=== PATIENT | female | born 1960 | race Caucasian/White ===

== ENCOUNTER → 2020-10-18 17:23 | Outpatient (CLI) | payer OTHER, SELFPAY ==
--- NOTE | ~2020-10-18 | XR_ITS ---
EXAMINATION: XR hand LT min 3V DATE: 10/18/2020 17:56 INDICATION: Left hand third digit swelling. TECHNIQUE: 3 views of left hand were obtained. COMPARISON: None. FINDINGS: Bone alignment is normal. No fracture. There is mild osteoarthritis of fourth and fifth pro ximal interphalangeal joints and fifth distal interphalangeal joint. IMPRESSION: 1. Polyarticular osteoarthritis. Reviewed, dictated and finalized at location A.
== END ==
PROVIDERS: PCP Family Medicine; Visit Provider Family Medicine
DX: M19.042 Primary osteoarthritis, left hand (principal)
CPT/HCPCS: 73130

== ENCOUNTER 2020-11-08 14:27 | Outpatient (RCR) | payer OTHER, SELFPAY ==
--- NOTE | 2020-11-08 15:42 | OTOPEVAL ---
OCCUPATIONAL THERAPY EVALUATION & DISCHARGE NOTE 11/08/20 Misti is a 60 year-old, right handed female who presents to outpatient hand therapy with dx of left middle finger stenosing tenosynovitis. She had a cortisone injection ~ 10 days ago and this alleviated all symptoms. She no longer has pain, edema, or any restricted ROM and has returned to normal functional use. She does have concerns about the condition returning for which she was educated on use of ice/heat, rest, immobilization, and ROM. She was also instructed in workspace ergonomics and adaptive techniques to reduce tendon strain in her hands during ADLs, driving, and riding her bike. She verbalizes good understanding of all materials and is in agreement with discharge. Thank you for referring Misti Gordillo to [facility].? Please review, sign, date and return this D/C Note SHEMAR. I agree with and certify that the following plan of care is medically necessary. Referring Physician Date Referring Provider: Maik Lyn MD *OT Outpatient Evaluation Start: 11/08/20 09:22 Evaluation Information Problem Diagnosis Left middle finger stenosing tenosynovitis Subjective Information At the end of May - COVID Query Text:As Reported By Patient/ shot, joints inflamed, Family increased pain body-wide. Then end of June - COVID shot, pain was more localized to left hand, specifically to left middle finger. Noticed pain and edema. Would use heat/ice/ Tylenol which would help some, but symptoms would always return. She received a cortisone injection on 10/29/20 and her symptoms have completely alleviated. Pain Assessment Timing of Pain Assessment Timing of Pain Assessment Assessment Self Report Self Report Pain Level 0 Pain Score Pain Score 0: Self Report Upper Extremity Range of Motion Finger Range of Motion Left Reason Not Measured WNL/Left,WNL/Right Finger Range of Motion Comments Slight (<1cm) gap with hook fist in index and middle fingers. Full fist, opposition , and lumbricals are intact. Splint/Brace/Cast Assessment Splint and Bracing Assessment Left Finger, Middle Fabrication Clinician Made Splint/Brace/Cast Comments Figure 8 PIP immobilization splint Reason For Splint/Brace/Cast Optimal Positioning Schedule Comments Patient to wear at night and during the day if trigger finger returns. Site Condition Intact Tolerance Tolerates Well Splinting/Bracing/Casting Comments
== END 2021-01-24 10:04 | disposition home or self-care (01) ==
LOC: ANHOT 14:27
PROVIDERS: PCP Family Medicine; Visit Provider Plastic Surgery
DX: M65.332 Trigger finger, left middle finger (principal)
CPT/HCPCS: 97110; 97165; L3933

== ENCOUNTER → 2022-08-29 13:24 | Outpatient (CLI) | payer OTHER, SELFPAY ==
--- NOTE | ~2022-08-29 | MM_ITS ---
EXAMINATION: MM screening [facility] BI w [facility] HISTORY: Screening mammogram TECHNIQUE: Craniocaudal and mediolateral oblique 3-D tomosynthesis images were obtained and synthetic 2-D images were generated. CAD analysis was submitted and interpreted. COMPARISON: 03/11/2019, 06/19/2016, 05/19/2013 BREAST PARENCHYMAL COMPOSITION: There are scattered areas of fibroglandular density. FINDINGS: No suspicious mass, calcification, or architectural distortion are identified in either vilma ast to suggest malignancy. There has been no suspicious interval change. IMPRESSION: 1. No mammographic evidence of malignancy. 2. Recommend routine screening mammography in one year. BI-RADS Category 1: Negative Reviewed, dictated and finalized at location A.
--- NOTE | ~2022-08-29 | DEXA_ITS ---
Bone Density Report Name: BRAYDON LEONARD Age: 61 Sex: Female Ethnicity: White Date of : 1960 Indication: osteopenia; parental hip fracture; prior fracture; postmenopausal Referring Provider: SABINO MARK Study: Bone densitometry was performed. Exam Date: August 29, 2022 Accession number: [id number] Bone Density: Region BMD T-score Z-score Classification AP Spine (L1-L4) 0.943 -0.9 0.5 Normal Femoral Neck (Left) 0.647 -1.8 -0.5 Osteopenia Total Hip (Left) 0.798 -1.2 -0.2 Osteopenia Femoral Neck (Right) 0.604 -2.2 -0.9 Osteopenia Total Hip (Right) 0.703 -2.0 -1.0 Osteopenia Total Hip Mean 0.751 -1.6 -0.6 Osteopenia World Health Organization criteria for BMD impression classify patients as: Normal (T-score at or above -1.0), Osteopenia (T-score between -1.0 and -2.5), or Osteoporosis (T-score at or below -2.5). 10-year Fracture Risk(1): Major Osteoporotic Fracture 31% Hip Fracture 2.6% Reported Risk Factors: [place] (), Neck BMD=0.604, BMI=27.0, previous fracture, parental fracture (1) FRAX(R) Version 3.08. Fracture probability calculated for an untreated patient. Fracture probability may be lower if the patient has received treatment. Previous Exams: Region Exam Age BMD T-score BMD Change BMD Change Date g/cm2 vs Baseline vs Previous AP Spine(L1-L4) 08/29/2022 61 0.943 -0.9 0.012 -0.006 03/11/2019 58 0.949 -0.9 0.018 0.011 06/27/2016 55 0.938 -1.0 0.007 -0.022 02/22/2013 52 0.960 -0.8 0.029* 0.029* 01/23/2011 50 0.931 -1.1 Total Hip(Left) 08/29/2022 61 0.798 -1.2 -0.066* -0.052* 03/11/2019 58 0.850 -0.8 -0.014 -0.028* 06/27/2016 55 0.878 -0.5 0.013 0.002 02/22/2013 52 0.876 -0.5 0.011 0.011 01/23/2011 50 0.865 -0.6 Total Hip(Right) 08/29/2022 61 0.703 -2.0 -0.089* -0.043* 03/11/2019 58 0.747 -1.6 -0.046* -0.002 06/27/2016 55 0.749 -1.6 -0.044* -0.068* 02/22/2013 52 0.817 -1.0 0.024 0.024 01/23/2011 50 0.793 -1.2 *Denotes significance at 95% confidence level, LSC for AP Spine = 0.022 g/cm2, LSC for Total Hip = 0.027 g/cm2 Clinical Information Provided by Patient: Has had a low trauma fracture Parent has had a hip fracture Has used the following medications: Vitamin D, Calcium Patient maximum h
== END ==
PROVIDERS: PCP Family Medicine; Visit Provider Family Medicine
DX: Z12.31 Encounter for screening mammogram for malignant neoplasm of breast (principal); Z78.0 Asymptomatic menopausal state; M85.852 Other specified disorders of bone density and structure, left thigh; M85.851 Other specified disorders of bone density and structure, right thigh
CPT/HCPCS: 77063; 77067; 77080

== ENCOUNTER 2024-06-06 13:43 | Outpatient (CLI) | payer OTHER, SELFPAY ==
--- OUTSIDE RECORDS SUMMARY | 2024-06-06 13:46 | XMS_ITS | Clinical Summary ---
Author Organization [facility] Address [address] [place] [phone] Phone Care Team Providers Care Recruiter Manager Name Role Phone Norris Stacy MD Primary Care Provider [phone] Allergies Active Allergy Reactions Criticality Noted Date Comments Azithromycin Other (See Comments) 08/10/2020 tachycardia Penicillins Rash Low 08/10/2020 Sulfa (Sulfonamide Antibiotics) Rash Low 08/10/2020 Medications No known medications Social History Tobacco Use Types Packs/Day Years Used Date Smoking Tobacco: Never Alcohol Use Standard Drinks/Week Comments Yes 0 (1 standard drink = 0.6 oz pur e alcohol) Comments Unknown Sex and Gender Information Value Date Recorded Sex Assigned at Not on file Legal Sex Female 2:28 PM CDT Gender Identity Not on file Sexual Orientation Not on file Last Filed Vital Signs Vital Sign Reading Time Taken Comments Blood Pressure 128/73 08/10/2020 5:09 PM CDT Pulse 66 08/10/2020 2:38 PM CDT Temperature 36.8 C (98.2 F) 08/10/2020 5:09 PM CDT Respiratory Rate 18 08/10/2020 5:09 PM CDT Oxygen Saturation 100% 08/10/2020 5:09 PM CDT Inhaled Oxygen Concentration - - Weight 75.8 kg (167 lb) 08/10/2020 2:38 PM CDT Height 167.6 cm (5' 6 ) 08/10/2020 2:38 PM CDT Body Mass Index 26.95 08/10/2020 2:38 PM CDT Plan of Treatment Health Maintenance Due Date Last Done Comments DTAP/TDAP/TD VACCINES (1 - Tdap) 1981 CERVICAL CANCER SCREENING 1992 BREAST CANCER SCREENING 2002 COLORECTAL SCREENING 09/25/2007 Colorectal Cancer Screening 09/25/2007 FIT-DNA Q 3 years 09/25/2007 FIT/FOBT Q 1 year 09/25/2007 Flex Sig/CT Colonography Q 5 years 09/25/2007 ZOSTER VACCINE (1 of 2) 2012 INFLUENZA VACCINE (#1) 2023 RSV VACCINE (60+ or ) (1 - 1-dose 75+ series) 2037 PNEUMOCOCCAL VACCINE 0-64 YEARS Aged Out No longer eligible based on patient's age to complete this topic Insurance [employer] CHOICE POS II Care Teams Recruiter Manager Relationship Specialty Start Date End Date Norris Stacy MD [address] [place] [id number] PCP - General Family Practice 08/10/20
--- OUTSIDE RECORDS SUMMARY | 2024-06-06 13:47 | XMS_ITS | Data Portability ---
Author Organization [place] Angela HOFFMAN Address [address] [facility] [address] 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 recent past hx of abnormals reviewed ; normal SUSIE workup in 2017. last pap normal... menopausal, doing well with black cohash and evening primrose [employer] son just got in [place]. a big damn deal... 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 Lab pap, IG + reflex HR HPV - Reflex if ASCUS 2016 017 [facility], [address], [place], [address], 7 16:26:16 pap, LB + reflex HPV mRNA E6/E7 - Broom only 2017 018 Related Content Database (RCDb) - [facility], [address] [place], [address], 8 07:09:35 pap, LB + reflex HPV mRNA E6/E7 - Broom only 2018 019 Related Content Database (RCDb) [facility], [address] [place], [address], 9 15:35:11 fecal occult blood, stool 2018 019 In-Office Order, Internal Use Only DO Not Attach Compendium DO Not Attach Compendium, Do Not Delete/merge, [id number] 9 17:11:54 cytology report, thin prep, smear or scraping, cervical or vaginal 2023 024 [facility], [address] [place] [address], [address], 4 16:19:32 Referral None recorded. Procedures None recorded. Surgeries None recorded. Imaging MAMMO, screening, digital, bilateral 2017 018 [email or web address] Not available 8 11:25:03 MAMMO, screening, digital, bilateral 2018 019 Not available 9 17:11:55 MAMMO, screening, digital, bilateral 2023 024 [facility], [address], [place], [address], 5 11:42:58 Medication Orders None recorded. Patient TargetsNo targets recorded. Patient Instructions Encounter Date Encounter Id Patient Instructions Last Modified By Organization Details Last Modified Time 03/18/2018 [id number] learning about breast cancer screening Not available 03/18/2018 11:17:23 04/08/2019 [id number] learning about breast cancer screening Not available 04/08/2019 17:11:55 04/17/2024 [id number] A healthy lifestyle: care instructions Not available 04/17/2024 15:36:43 learning about breast cancer screening Not available 04/17/2024 15:36:43 Reason for Referral None Reported. Results Created Date Observation Date Name Description Value Unit Range Abnormal Flag Note LastModifiedBy Organization Detail LastModifiedTime 12/26/19 17 12/28/2016 pap, LB + refle x HPV mRNA E6/E7 clinical information: normal Routi ne exam Not Available [address], [address], 12/28/2016 16:26:16 12/26/19 17 12/28/2016 pap, LB + refle x HPV mRNA E6/E7 LMP: 7 normal Not Available [address], [address], 12/28/2016 16:26:16 12/26/19 17 12/28/2016 pap, LB + refle x HPV mRNA E6/E7 prev. Pap: normal INFOR MATIO N NOT PROVI DED Not Available [address], [address], 12/28/2016 16:26:16 12/26/19 17 12/28/2016 pap, LB + refle x HPV mRNA E6/E7 prev. BX: normal INFOR MATIO N NOT PROVI DED Not Available [address], [address], 12/28/2016 16:26:16 12/26/19 17 12/28/2016 pap, LB + refle x HPV mRNA E6/E7 source: normal Cervi x, Endoc ervix Not Available [address], [address], 12/28/2016 16:26:16 12/26/19 17 12/28/2016 pap, LB + refle x HPV mRNA E6/E7 statement of adequacy: normal Satis facto ry for evalu ation . Endoc ervic al/tr ansfo rmati on zone compo nent prese nt. Not Available [address] [address] [place], [address], 12/28/2016 16:26:16 12/26/19 17 12/28/2016 pap, LB + refle x HPV mRNA E6/E7 interpretati on/result: normal Negat florence for intra epith elial lesio n or malig santos . Not Available [address], [place], [address], 12/28/2016 16:26:16 12/26/19 17 12/28/2016 pap, LB + refle x HPV mRNA E6/E7 comment: normal This Pap test has been evalu ated with compu ter morgan evan techn ology . Not Available [address] [address] [place], [address], 12/28/2016 16:26:16 12/26/19 17 12/28/2016 pap, LB + refle x HPV mRNA E6/E7 cytotechnolo gist: normal PCM, CT( CP) CT scree chery locat ion: [address] [address] [place] [address] Not Available [address] [address] [place], [address], 12/28/2016 16:26:16 03/18/20 18 03/25/2018 pap, LB + refle x HPV mRNA E6/E7 clinical information: normal Routi ne exam Hx of abnor mal Pap/B x withi n 3 years Not Available [address] [address] [place], [address], 03/25/2018 07:09:34 03/18/20 18 03/25/2018 pap, LB + refle x HPV mRNA E6/E7 LMP: [id number] 18 normal Not Available [address] [address] [place], [address], 03/25/2018 07:09:34 03/18/20 18 03/25/2018 pap, LB + refle x HPV mRNA E6/E7 prev. Pap: normal INFOR MATIO N NOT PROVI DED Not Available [address] [address] [place], [address], 03/25/2018 07:09:34 03/18/20 18 03/25/2018 pap, LB + refle x HPV mRNA E6/E7 prev. BX: normal INFOR MATIO N NOT PROVI DED Not Available [address] [address] [place], [address], 03/25/2018 07:09:34 03/18/20 18 03/25/2018 pap, LB + refle x HPV mRNA E6/E7 source: normal Cervi x, Endoc ervix Not Available [address] [address] [place], [address], 03/25/2018 07:09:34 03/18/20 18 03/25/2018 pap, LB + refle x HPV mRNA E6/E7 statement of adequacy: normal Satis facto ry for evalu ation . Endoc ervic al/tr ansfo rmati on zone compo nent absen t. Not Available [address] [address] [address] , [place], [address], 03/25/2018 07:09:34 03/18/20 18 03/25/2018 pap, LB + refle x HPV mRNA E6/E7 interpretati on/result: normal Negat florence for intra epith elial lesio n or al graham . Not Available [address] [address] [place], [address], 03/25/2018 07:09:34 03/18/20 18 03/25/2018 pap, LB + refle x HPV mRNA E6/E7 comment: normal This Pap test has been evalu ated with compu ter morgan evan techn ology . Not Available [address] [address] [place], [address], 03/25/2018 07:09:34 03/18/20 18 03/25/2018 pap, LB + refle x HPV mRNA E6/E7 cytotechnolo gist: normal TMK, CT( CP) CT scree chery locat ion: [address] [address] [place] [address] Not Available [address] [address] [place], [address], 03/25/2018 07:09:34 03/18/20 18 03/25/2018 pap, LB + refle x HPV mRNA E6/E7 review cytotechnolo gist: normal LMT, CT( CP) CT scree chery locat ion: [address] [address] [place] [address] Not Available [facility] [address] [address] [place], [address], 03/25/2018 07:09:34 03/18/20 18 03/25/2018 pap, LB + refle x HPV mRNA E6/E7 comment EXPLA NATOR Y NOTE: The Pap is a scree chery test for cervi niru cance r. It is not a diagn ostic test and is subje ct to false negat florence and false posit florence resul ts. It is most relia ble when a satis facto ry sampl e, regul jose m obtai basim, is submi tted with relev ant clini niru findi ngs and histo ry, and when the Pap resul t is evalu ated along with histo delfin and curre nt clini niru infor matio n. Not Available [address] [address] [place], [address], 03/25/2018 07:09:34 04/08/20 19 04/10/2019 pap, LB + refle x HPV mRNA E6/E7 clinical information: normal Routi ne exam Not Available [facility] [address] [address] [place], [address], 04/10/2019 15:35:10 12/10/04/10/2019 pap, LB + refle x HPV mRNA E6/E7 LMP: 8 normal Not Available [address] [address] [place], [address], 04/10/2019 15:35:10 04/08/20 19 04/10/2019 pap, LB + refle x HPV mRNA E6/E7 prev. Pap: normal INFOR MATIO N NOT PROVI DED Not Available [address] [address] [place], [address], 04/10/2019 15:35:10 04/08/20 19 04/10/2019 pap, LB + refle x HPV mRNA E6/E7 prev. BX: normal INFOR MATIO N NOT PROVI DED Not Available [address] [address] [place], [address], 04/10/2019 15:35:10 04/08/20 19 04/10/2019 pap, LB + refle x HPV mRNA E6/E7 source: normal Cervi x, Endoc ervix Not Available [address] [place], [address], 04/10/2019 15:35:10 04/08/20 19 04/10/2019 pap, LB + refle x HPV mRNA E6/E7 statement of adequacy: normal Satis facto ry for evalu ation . Endoc ervic al/tr ansfo rmati on zone compo nent absen t. Not Available [address] [address] [place], [address], 04/10/2019 15:35:10 04/08/20 19 04/10/2019 pap, LB + refle x HPV mRNA E6/E7 interpretati on/result: normal Negat florence for intra epith elial lesio n or malig santos . Not Available [address] [address] [place], [address], 04/10/2019 15:35:10 04/08/20 19 04/10/2019 pap, LB + refle x HPV mRNA E6/E7 cytotechnolo gist: normal AMW, CT( CP) CT scree chery locat ion: [address] [address] [place] [address] Not Available [facility] [address] [address] [place], [address], 04/10/2019 15:35:10 04/08/20 19 04/10/2019 pap, LB + refle x HPV mRNA E6/E7 review cytotechnolo gist: normal MLO, CT( CP) CT scree chery locat ion: [facility] [address] [address] [place] [address] Not Available [facility] [address] [address] [place], [address], 04/10/2019 15:35:10 04/08/20 19 04/10/2019 pap, LB + refle x HPV mRNA E6/E7 comment EXPLA NATOR Y NOTE: The Pap is a scree chery test for cervi niru cance r. It is not a diagn ostic test and is subje ct to false negat florence and false posit florence resul ts. It is most relia ble when a satis facto ry sampl e, regul jose m obtai basim, is submi tted with relev ant clini niru findi ngs and histo ry, and when the Pap resul t is evalu ated along with histo delfin and curre nt clini niru infor matio n. Not Available [facility] [address] [address] [address], [place], [address], 04/10/2019 15:35:10 04/08/20 19 04/08/2019 fecal occul t blood , stool Occult Blood negati ve Not Available In-Office Order Internal Use Only DO Not Attach Compendium DO Not Attach Compendium, Do Not Delete/merge, [id number] 04/08/2019 16:41:49 04/17/20 24 04/25/2024 IGP, RFX APTIM A HPV ASCU diagnosis: COMMEN T NEGAT [place] FOR INTRA EPITH ELIAL STEPHANIE Hackett OR AL GRAHAM . Not Available [facility] ([facility]) [address], [place], [address], 04/25/2024 16:19:32 04/17/20 24 04/25/2024 IGP, RFX APTIM A HPV ASCU specimen adequacy: OMEGA Lopez Satis facto ry for evalu ation . Not Available [facility] ([facility]) [address], [place], [address], 04/25/2024 16:19:32 04/17/20 24 04/25/2024 IGP, RFX APTIM A HPV ASCU clinician provided ICD10: OMEGA Lopez Z01.4 19 Not Available [facility] ([facility]) [address] [facility], [place], [address], 04/25/2024 16:19:32 04/17/20 24 04/25/2024 IGP, RFX APTIM A HPV ASCU performed by: Raymond Wang (ASCP ) Not Available [facility] ([facility]) [address] [facility], [place], [address], 04/25/2024 16:19:32 04/17/20 24 04/25/2024 IGP, RFX APTIM A HPV ASCU . . Not Available [facility] ([facility]) [address] [place], [address], 04/25/2024 16:19:32 04/17/20 24 04/25/2024 IGP, RFX APTIM A HPV ASCU note: OMEGA Lopez The Pap smear is a scree chery test desig basim to aid in the detec tion of dileep ligna nt and malig nant condi tions of the uteri ne cervi x. It is not a diagn ostic proce dure and shoul d not be used as the sole means of detec ting cervi niru cance r. Both false -posi tive and false -nega tive repor ts do occur . Not Available [facility] ([facility]) [address], [place], [address], 04/25/2024 16:19:32 04/17/20 24 04/25/2024 IGP, RFX APTIM A HPV ASCU test methodology: COMMEN T This liqui d based ThinP rep(R ) pap test was scree basim with the use of an image guide conner olivarez. Not Available [facility] ([facility]) [address], [place], [address], 04/25/2024 16:19:32 04/17/20 24 04/25/2024 IGP, RFX APTIM A HPV ASCU . COMMEN T The HPV DNA refle x crite giovana were not met with this speci men resul t there fore, no HPV testi ng was perfo rmed. Not Available [facility] ([facility]) [address], [place], [address], 04/25/2024 16:19:32 Result Notes None recorded. Problems No Known Problems Procedures Surgical History Date Name Laterality Status Provider Name and Address Organization Details Recorded Time 4 Date of Last Pap Smear completed MARIA EUGENIA Greene [facility] 04/25/2024 16:28:53 7 Dilation and Curettage completed Chayo Cheek MA [facility] 08/07/2016 16:51:26 7 Colposcopy completed Enrique Bhardwaj MD Attn: Accounting[address] [place], [address], [facility] 06/21/2016 12:37:39 Back Surgery completed Mary Cancino RN [facility] 06/12/2016 17:39:41 Tubal Ligation completed Mary Cancino RN [facility] 06/12/2016 17:40:00 Imaging Results None recorded. Procedure Notes None recorded. Medical Equipment None Reported. Allergies Allergen ID Allergen Name Allergen Category Reaction Reaction Severity Criticality Documentation Date Start Date Code Code System Note Provider Name and Address Organization Details Recorded Time 08053 azithromy malini medicatio n Not available Not available Not available 06/12/2016 57496 RxNorm Not Available Not Available Not Available 14892 Product containin g penicilli n and antibioti c (product) medicatio n Not available Not available Not available 06/12/2016 43987 05 SNOMED Not Available Not Available Not Available 30331 Substance with sulfonami de structure and antibacte rial mechanism of action (substanc e) medicatio n Not available Not available Not available 06/12/2016 25116 8003 SNOMED Not Available Not Available Not Available Medications Name Sig Start Date Stop Date Status Note LastModified by Organization Details LastModified Time cyclobenzaprine 10 mg tablet TAKE 1 TABLET BY MOUTH THREE TIMES DAILY active Not Available Not Available No t Available valacyclovir 1 gram tablet TAKE 2 TABLET BY MOUTH EVERY 12 HOURS FOR 1 DAY NEEDED FOR COLD SORES active Not Available Not Available No t Available valacyclovir 500 mg tablet Take 1 tablet twice a day by oral route for 7 days. 2017 active Not Available Not Available Not Avai lable ciprofloxacin 0.3 %-dexamethasone 0.1 % ear drops,suspensio n INSTILL 4 DROPS INTO LEFT EAR TWICE DAILY FOR 7 DAYS active Not Available Not Available No t Available cholecalciferol (vitamin D3) 1,250 mcg (50,000 unit) capsule TAKE 1 CAPSULE BY MOUTH ONCE WEEKLY active Not Available Not Available No t Available Vitals Date Recorded Body height Body mass index (BMI) Body weight Systolic blood pressure Diastolic blood pressure Provider Name and Address Organization Details Last Updated DateTime 03/18/2018 166.37 cm 29.8 kg/m2 65797.81 g 106 mm[Hg] 72 mm[Hg] Chayo hackett [place] [facility] 8 11:14:14 Date Recorded Body height Body mass index (BMI) Body weight Systolic blood pressure Diastolic blood pressure Provider Name and Address Organization Details Last Updated DateTime 04/08/2019 166.37 cm 29.2 kg/m2 59535.87 g 136 mm[Hg] 84 mm[Hg] Chayo hack[place] [facility] 9 16:46:19 Date Recorded Body weight Systolic blood pressure Diastolic blood pressure Provider Name and Address Organization Details Last Updated DateTime 12/08/2021 18192.84 g 126 mm[Hg] 80 mm[Hg] Candace Keller Anam [facility] 12/08/2021 16:14:28 Date Recorded Body height Body mass index (BMI) Body weight Systolic blood pressure Diastolic blood pressure Provider Name and Address Organization Details Last Updated DateTime 04/17/2024 166.37 cm 28.2 kg/m2 30147.89 g 125 mm[Hg] 80 mm[Hg] Candace Keller [facility] 4 15:32:47 Date Recorded Body height Body mass index (BMI) Body weight Systolic blood pressure Diastolic blood pressure Provider Name and Address Organization Details Last Updated DateTime 12/25/2016 166.37 cm 29.5 kg/m2 92902.7 g 118 mm[Hg] 78 mm[Hg] Chayo hackett MA [facility] 7 16:37:06 Social History Question Answer Notes LastModified by Organizat ion Details LastModified Time Tobacco Smoking Status Never Smoker Mary Cancino RN [facility], [facility] 06/12/2016 17:39:03 What Was The Date Of Your Most Recent Tobacco Screening? 04/17/2024 Information not available 04/17/2024 Has Tobacco Cessation Counseling Been Provided? No Information not available 12/08/2021 Do You Or Have You Ever Used Any Other Forms Of Tobacco Or Nicotine? No Information not available 12/08/2021 Sex: Female Functional Status None recorded. Mental Status None recorded. Family History Nothing Reported Notes:aunt with Breast CA HX Medical History Condition Response Muscle, Joint, or Bone Problems Y Gynecological History Statement/Question Response Menses Monthly N STIs/STDs Y Abnormal Pap Yes Date of Last Pap Smear 04/17/2024 Sexual Problems? N Current Control Method Tubal Ligat ion LMP Definite Obstetrics History GPAL:G 2 P 1 0 1 1 Type Value Full Term 1 Induced 1 Living 1 Total 2 Past Encounters Encounter ID Performer Location Encounter Start Date Encounter Closed Date Diagnosis/Indication Diagnosis SNOMED-CT Code Diagnosis ICD10 Code Diagnosis Note [id number] MD [place] [facility] ([facility]) [address] [facility] [address] [facility] [place] [address] 06/21/2016 11:37:12 06/22/2016 11:52:48 Atypical glandular cells on cervical Papanicolaou smear 079296425 R87.108 [id number] MD [place] [facility] ([facility]) [address] [facility] [place] [address] 08/07/2016 16:39:46 08/08/2016 09:33:10 Atypical glandular cells on cervical Papanicolaou smear 073412027 R87.092 [id number] MD [place] Wright ([place] [address]) [address] [facility] [place] [address] 12/25/2016 16:15:37 12/26/2016 12:53:29 Atypical glandular cells on cervical Papanicolaou smear 958195783 R87.770 [id number] MD [place] [address] OB [address] [facility] [place] [address] 03/18/2018 10:20:33 03/20/2018 13:00:07 Gynecologic examination 34555786 Z01.419 Screening for malignant neoplasm of breast 223104294 Z12.31 Screening for malignant neoplasm of colon 056535418 Z12.11 [id number] MD [place] 14 OB [address] [facility] [place] [address] 04/08/2019 16:35:30 04/11/2019 13:57:40 Gynecologic examination 73614525 Z01.419 Screening for malignant neoplasm of colon 341133975 Z12.11 Screening for malignant neoplasm of breast 864959138 Z12.31 Menopause present 315559 006 N95.1 [id number] Mary Cancino RN [place] 14 OB [address] [facility] [place] [address] 12/08/2021 15:57:54 12/10/2021 03:47:05 [id number] Enrique Bhardwaj MD [place] [address] [facility] [place] [address] 04/17/2024 15:03:46 04/18/2024 08:24:46 Depression screening 342762043 Z13.31 Overweight 609758907 E66 .3 Gynecologi c examination 11651624 Z01.419 Screening for malignant neoplasm of breast 045819270 Z12.31 Health Concerns Section Related Observation LastModified by Organization Detai ls LastModified Time None Recorded Concern Status LastModified by Organization Details LastModified Time None Recorded Advance Directives Directive None Recorded Payers Encounter Date Sequence Insurance Name Policy Number Policy Ely Covered Member ID Ely Member ID Guarantor Name 12/25/2016 1 [employer] (POS) [id number] Misti L Latempt [id number] Misti L Latempt 03/18/2018 1 [employer] (POS) [id number] Misti L Latempt [id number] Misti L Latempt 04/08/2019 1 [employer] (POS) [id number] Misti L Latempt [id number] Misti L Latempt 12/08/2021 1 [employer] (POS) [id number] Misti L Latempt [id number] Misti L Latempt 04/17/2024 1 [employer] (POS) [id number] Misti L Latempt [id number] Misti L Latempt Notes Date Note Type Note Provider Name and Address Organization Details Recorded Time 03/18/2018 text/html Annual Yard Foreman Post-MenopausalRep orted bypatient.Menopaus al Symptoms:no menopausal symptoms; normal vaginal lubrication Vaginal Bleeding:history of menopause having occurred; no history of post menopausal bleeding Urinary Symptoms:no hematuria; no incontinence; no nocturia; no urinary frequency Vulva:no genital lesion; no vulvar atrophy Vagina:normal vaginal discharge; no vaginal atrophy Breast:no breast lump; no nipple discharge; no breast pain Sexual Complaints:no sexual complaints Psychological Symptoms:no depression; no anxiety Enrique Bhardwaj MD Attn: Accounting[address] [place], [address], [place] [facility] 03/18/2018 11:36:29 04/08/2019 text/html Annual Yard Foreman Post-MenopausalRep orted bypatient.Menopaus al Symptoms:no menopausal symptoms; normal vaginal lubrication Vaginal Bleeding:history of menopause having occurred; no history of post menopausal bleeding Urinary Symptoms:no hematuria; no incontinence; no nocturia; no urinary frequency Vulva:no genital lesion; no vulvar atrophy Vagina:normal vaginal discharge; no vaginal atrophy Breast:no breast lump; no nipple discharge; no breast pain Sexual Complaints:no sexual complaints Psychological Symptoms:no depression; no anxiety Enrique Bhardwaj MD Attn: Accounting[address] [place], [address], [facility] 04/08/2019 17:18:22 04/17/2024 text/html Annual Yard Foreman Post-MenopausalRep orted bypatient.Menopaus al Symptoms:no menopausal symptoms; normal vaginal lubrication Vaginal Bleeding:history of menopause having occurred; no history of post menopausal bleeding Urinary Symptoms:no hematuria; no incontinence; no nocturia; no urinary frequency Vulva:no genital lesion; no vulvar atrophy Vagina:normal vaginal discharge; no vaginal atrophy Breast:no breast lump; no nipple discharge; no breast pain Sexual Complaints:no sexual complaints Psychological Symptoms:no depression; no anxiety Enrique Bhardwaj MD Attn: Accounting[address] [place], [address], [facility] 04/17/2024 15:53:18 OBGyn Episode Ob Episode Information Episode Created Date Number of Fetuses Patient Bloodtype Patient rh Status Prepregnancy Weight lbs Domestic Partner Domestic Partner Phone Father Name Communications Assistant Status 06/12/19 17 1 CLOSED Fetus Data First Name Last Name Admitted to NICU Weight (g) Sex Living Outcome Pediatric Complications Fetus ID Race Codes Race Delivery Type 4082.32 8 M [id number] Vaginal Kings Calculation Initial Kings Date Initial Exam Date Initial Exam Provider Initial Ultrasound Date Last Menstrual Period Date Ultra Sound Weeks Gestation 0 Eighteen To Twenty Week Kings Update Ultra Sound Date Fundal Height At Umbil Quickening Date Ultra Sound Latest Weeks Gestation Final Kings Confirmed By Final Kings Confirmed Date Final Kings Date Ultra Sound Latest Days Gestation 0 0 Menstrual History Last Menstrual Date Menses Monthly On Bcp Conception Prior Menses Frequency Hcg Plus Date Menarche Onset Age Delivery Information Delivery Date Delivery Type Labor Anesthesia Weeks Gestation Incision Type Labor Labor Length Hrs Delivered By Post Complications Tubal Sterilization Discharge Date Comments 4 Discharge Information Feeding Method Contraceptive Method Maternal HG B and HCT Levels
--- OUTSIDE RECORDS SUMMARY | 2024-06-06 13:47 | XMS_ITS | Clinical Summary ---
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 Name Role Phone Scarlett Stacy MD Primary Care Provider [phone] Allergies Active Allergy Reactions Criticality Noted Date Comments Azithromycin Shortness of breath,Rash High Penicillins Rash Medium 09/02/2020 Sulfa (Sulfonamide Antibiotics) Rash Medium 09/02/2020 Social History Tobacco Use Types Packs/Day Years Used Date Smoking Tobacco: Never Assessed Comments Unknown Sex and Gender Information Value Date Recorded Sex Assigned at Not on file 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
--- OUTSIDE RECORDS SUMMARY | 2024-06-06 13:47 | XMS_ITS | Referral Summary ---
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
--- NOTE | 2024-06-06 13:55 | ECHO_ITS ---
Patient Info Name: Misti Gordillo Age: 63 years : 1960 Gender: Female Ht: 65 in Wt: 116 lbs BSA: 1.55 m2 HR: 74 bpm BP: 116 / 74 mmHg Heart Rhythm: Sinus Rhythm Technical Quality: Excellent Exam Date: 06/06/2024 2:05 PM Exam Location: Echo Lab Patient Status: Outpatient Admit Date: 06/06/2024 Staff Ordering Physician: Alma Rosa Patel NP Drill Punch Operator: Kalyn Nye RDCS Attending Provider: Alma Rosa Patel NP Referring Physician: Jorge GARCIA; Exam Type: CA echo doppler color flow Study Info Indications - Palpitations Complete two-dimensional, color flow and Doppler transthoracic echocardiogram is performed. Summary 1. Complete two-dimensional, color flow and Doppler transthoracic echocardiogram is performed. 2. Left ventricular chamber dimension is normal. 3. Left ventricular systolic function is normal, estimated at 60-65%. 4. The left ventricular diastolic function is normal. 5. E/e' 8 is minimally elevated. 6. Left atrial chamber dimension is mildly enlarged. 7. There is mild to moderate mitral valve regurgitation. 8. There is mild to moderate tricuspid valve regurgitation. 9. Moderate pulmonary hypertension, estimated pulmonary arterial systolic pressure is 51 mmHg. Left Ventricle E/e' 8 is minimally elevated. Left ventricular chamber dimension is normal. Left ventricular systolic function is normal, estimated at 60-65%. The left ventricular diastolic function is normal. Right Ventricle Right ventricular systolic function is normal and with normal TAPSE 2.5 cm. Right ventricular chamber dimension is normal. Left Atria Left atrial chamber dimension is mildly enlarged. Right Atria Right atrial chamber dimension is normal. Aortic Valve The aortic valve is trileaflet. There is no aortic valve stenosis. There is no aortic valve regurgitation. Pulmonic Valve There is no pulmonic regurgitation. Mitral Valve There is no mitral valve stenosis. There is mild to moderate mitral valve regurgitation. Tricuspid Valve There is mild to moderate tricuspid valve regurgitation. Moderate pulmonary hypertension, estimated pulmonary arterial systolic pressure is 51 mmHg. Pericardium/Pleural There is no pericardial effusion. Inferior Vena Cava Normal inferior vena cava with >50% collapse upon inspiration consistent with normal right atrial pressure, 5 mmHg. Aorta The aortic root size at the sinus of Valsalva is normal. Left Ventricular Outflow Tract Name Value Normal LVOT 2D LVOT Diameter 2.2 cm LVOT Doppler LVOT Peak Gradient 4 mmHg LVOT Mean Gradient 2 mmHg LVOT VTI 25 cm LVOT VTI/AV VTI Ratio 0.7 LVOT Stroke Volume 94 ml LVOT CO 5.2 l/min LVOT CI 3.3 l/min/m2 Pulmonic Valve Name Value Normal PV Doppler PV Peak Gradient 3 mmHg Mitral Valve Name Value Normal MV Doppler MV Peak Gradient 2 mmHg MV Mean Gradient 1 mmHg MV Decel Barron 349 cm/s2 MV PHT 62 ms MV Area (PHT) 3.6 cm2 4.0-5.0 MV Area (Cont Eq VTI) 3.3 cm2 MV Regurgitation Doppler MR Peak Gradient 89 mmHg MV Diastolic Function MV E Peak Velocity 74 cm/s MV A Peak Velocity 70 cm/s MV E/A 1.1 MV Decel Time 213 ms MV Annular TDI MV E/e' (Septal) 10.2 <=8.0 MV E/e' (Lateral) 7.3 <=8.0 MV E/e' (Average) 8.7 Tricuspid Valve Name Value Normal TV Regurgitation Doppler TR Peak Velocity 338 cm/s TR Peak Gradient 46 mmHg Estimated PAP/RSVP RA Pressure 5 mmHg <=5 PA Systolic Pressure 51 mmHg <36 RV Systolic Pressure 51 mmHg <36 Aortic Valve Name Value Normal AV Doppler AV Peak Velocity 141 cm/s AV Peak Gradient 8 mmHg AV Mean Gradient 4 mmHg AV VTI 35 cm AV Area (Cont Eq VTI) 2.7 cm2 >=3.0 AV Area (Cont Eq Rm) 2.6 cm2 AV Regurgitation 2D LVOT Area 3.7 cm2 Ventricles Name Value Normal LV Dimensions 2D/MM IVS Diastolic Thickness (2D) 0.7 cm 0.6-1.0 LVID Diastole (2D) 5.7 cm 3.8-5.2 LVIW Diastolic Thickness (2D) 0.7 cm 0.6-0.9 LVID Systole (2D) 3.9 cm 2.2-3.5 LVOT Diameter 2.2 cm LV Mass (2D Cubed) 139.51 g 67.00-162.00 LV Mass Index (2D Cubed) 90 g/m2 43-95 Relative Wall Thickness (2D) 0.24 LV Fractional Shortening/Ejection Fraction 2D/MM LV Fractional Shortening (2D) 32 % 27-45 LV EF (2D Teicholz) 59 % 54-74 LV Diastolic Volume (4C MOD) 135 ml LV EF (4C MOD) 54 % LV Diastolic Length (4C) 8.1 cm LV Systolic Length (4C) 6.9 cm LV Stroke Volume (4C MOD) 72 ml Atria Name Value Normal LA Dimensions LA Volume (4C A-L) 64 ml RA Dimensions RA Area (4C) 15.1 cm2 <=18.0 Report Signatures
== END 2024-06-06 13:44 | disposition home or self-care (01) ==
PROVIDERS: PCP Nurse Practitioner; Visit Provider Nurse Practitioner
DX: I34.0 Nonrheumatic mitral (valve) insufficiency (principal); I36.1 Nonrheumatic tricuspid (valve) insufficiency; I27.20 Pulmonary hypertension, unspecified
CPT/HCPCS: 93306

== ENCOUNTER 2024-08-05 12:22 | Outpatient (CLI) | payer OTHER, SELFPAY ==
--- NOTE | ~2024-08-05 | MM_ITS ---
EXAMINATION: MM screening pearl BI w olivia HISTORY: Screening TECHNIQUE: Craniocaudal and mediolateral oblique 3-D tomosynthesis images were obtained and synthetic 2-D images were generated. CAD analysis was submitted and interpreted. COMPARISON: Comparison to multiple prior studies sequentially, with oldest reviewed study dated 06/27. BREAST PARENCHYMAL COMPOSITION: Not dense: There are scattered areas of fibroglandular density. FINDINGS: There is no evidence of suspicious mass, calcification, or architectural distortion to sugg est malignancy in either breast. There has been no suspicious interval change. IMPRESSION: 1. No mammographic evidence of malignancy. 2. Recommend routine screening mammography in one year. BI-RADS Category 1: Negative Reviewed, dictated and finalized at location A.
--- OUTSIDE RECORDS SUMMARY | 2024-08-05 13:31 | XMS_ITS | Clinical Summary ---
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
--- OUTSIDE RECORDS SUMMARY | 2024-08-05 13:31 | XMS_ITS | Data Portability ---
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 Discussed hx of SUSIE pap ; work up with D&C and ECC was (-) discussed LGSIL and ascus with HPV as well otherwise good spirits Not available 03/18/2018 11:36:02 04/08/2019 04/08/2019 housekeeping room inspector exam normal, no new issues. recent past hx of abnormals reviewed ; normal SUSIE workup in 2017. last pap normal... menopausal, doing well with black cohash and evening primrose [employer] son just got in Power. a big damn deal... Not available 04/08/2019 17:18:06 04/17/2024 04/17/2024 housekeeping room inspector exam normal not seen in a few years, no new issues Not available 04/17/2024 15:53:04 Plan of Treatment Reminders Order Date Submit Date Provider Last Modified By Organization Details Last Modified Time Details Appointments None record ed. Lab cytolo gy report , thin prep, smear or scrapi ng, cervic al or vagina l 2023 024 [facility], [address] [facility] [address], [place], [address], 4 16:19:32 pap, LB + reflex HPV mRNA E6/E7 - Broom only 2018 019 [facility], [address], [place], [address], 9 15:35:11 fecal occult blood, stool 2018 019 In-Office Order, Internal Use Only DO Not Attach Compendium DO Not Attach Compendium, Do Not Delete/merge, [id number] 9 17:11:54 pap, LB + reflex HPV mRNA E6/E7 - Broom only 2017 018 [facility] - [place] [facility], [address], [place], [address], 8 07:09:35 pap, IG + reflex HR HPV - Reflex if ASCUS 2016 017 [facility], [address], [place], [address], 7 16:26:16 Referral None record ed. Procedures None record ed. Surgeries None record ed. Imaging MAMMO, screen ing, digita l, bilate ral 2023 024 [facility], [address] [facility] , [place], [address], 5 09:09:28 MAMMO, screen ing, digita l, bilate ral 2018 019 Not available 9 17:11:55 MAMMO, screen ing, digita l, bilate ral 2017 018 [email or web address] Not available 8 11:25:03 Medication Orders None record ed. Patient TargetsNo targets recorded. Patient Instructions Encounter Date Encounter Id Patient Instructions Last Modified By Organization Details Last Modified Time 03/18/2018 [id number] learning about breast cancer screening Not available 03/18/2018 11:17:23 04/08/2019 [id number] learning about breast cancer screening Not available 04/08/2019 17:11:55 04/17/2024 [id number] A healthy lifestyle: care instructions [email or web address] Not available 04/17/2024 15:36:43 learning about breast cancer screening [email or web address] Not available 04/17/2024 15:36:43 Reason for Referral None Reported. Results Created Date Observation Date Name Description Value Unit Range Abnormal Flag Note LastModifiedBy Organization Detail LastModifiedTime 12/26/19 17 12/28/2016 pap, LB + refle x HPV mRNA E6/E7 clinical information: normal Routi ne exam Not Available [address], [address], 12/28/2016 16:26:16 12/26/19 17 12/28/2016 pap, LB + refle x HPV mRNA E6/E7 LMP: 7 normal Not Available [address] [place], [address], 12/28/2016 16:26:16 12/26/19 17 12/28/2016 pap, LB + refle x HPV mRNA E6/E7 prev. Pap: normal INFOR MATIO N NOT PROVI DED Not Available [address] [place], [address], 12/28/2016 16:26:16 12/26/19 17 12/28/2016 pap, LB + refle x HPV mRNA E6/E7 prev. BX: normal INFOR MATIO N NOT PROVI DED Not Available [address], [address], 12/28/2016 16:26:16 12/26/19 17 12/28/2016 pap, LB + refle x HPV mRNA E6/E7 source: normal Cervi x, Endoc ervix Not Available [address], [address], 12/28/2016 16:26:16 08/28/20 17 12/28/2016 pap, LB + refle x HPV mRNA E6/E7 statement of adequacy: normal Satis facto ry for evalu ation . Endoc ervic al/tr ansfo rmati on zone compo nent prese nt. Not Available [address] [address] [place], [address], 12/28/2016 16:26:16 12/26/19 17 12/28/2016 pap, LB + refle x HPV mRNA E6/E7 interpretati on/result: normal Negat florence for intra epith elial lesio n or malig santos . Not Available [address] [address] [place], [address], 12/28/2016 16:26:16 12/26/19 17 12/28/2016 pap, LB + refle x HPV mRNA E6/E7 comment: normal This Pap test has been evalu ated with compu ter morgan evan techn ology . Not Available [address] [address] [place], [address], 12/28/2016 16:26:16 12/26/19 17 12/28/2016 pap, LB + refle x HPV mRNA E6/E7 cytotechnolo gist: normal PCM, CT( CP) CT scree chery locat ion: [place] [address] [address] [place] [address] Not Available [address] [address] [place], [address], 12/28/2016 16:26:16 03/18/20 18 03/25/2018 pap, LB + refle x HPV mRNA E6/E7 clinical information: normal Routi ne exam Hx of abnor mal Pap/B x withi n 3 years Not Available [address] [address] [place], [address], 03/25/2018 07:09:34 03/18/20 18 03/25/2018 pap, LB + refle x HPV mRNA E6/E7 LMP: [id number] 18 normal Not Available [address] [address] [place], [address], 03/25/2018 07:09:34 03/18/20 18 03/25/2018 pap, LB + refle x HPV mRNA E6/E7 prev. Pap: normal INFOR MATIO N NOT PROVI DED Not Available [address] [address] [place], [address], 03/25/2018 07:09:34 03/18/20 18 03/25/2018 pap, LB + refle x HPV mRNA E6/E7 prev. BX: normal INFOR MATIO N NOT PROVI DED Not Available [address] [address] [place], [address], 03/25/2018 07:09:34 03/18/20 18 03/25/2018 pap, LB + refle x HPV mRNA E6/E7 source: normal Cervi x, Endoc ervix Not Available [address] [address] [place], [address], 03/25/2018 07:09:34 03/18/20 18 03/25/2018 pap, LB + refle x HPV mRNA E6/E7 statement of adequacy: normal Satis facto ry for evalu ation . Endoc ervic al/tr ansfo rmati on zone compo nent absen t. Not Available [address] [address] [place], [address], 03/25/2018 07:09:34 03/18/20 18 03/25/2018 pap, LB + refle x HPV mRNA E6/E7 interpretati on/result: normal Negat florence for intra epith elial lesio n or rohan graham . Not Available [address] [address] [place], [address], 03/25/2018 07:09:34 03/18/20 18 03/25/2018 pap, LB + refle x HPV mRNA E6/E7 comment: normal This Pap test has been evalu ated with compu ter morgan evan techn ology . Not Available [address] [address] [place], [address], 03/25/2018 07:09:34 03/18/20 18 03/25/2018 pap, LB + refle x HPV mRNA E6/E7 cytotechnolo gist: normal TMK, CT( CP) CT scree chery locat ion: [place] [address] [place] [address] Not Available [facility] [address] [address] [place], [address], 03/25/2018 07:09:34 03/18/20 18 03/25/2018 pap, LB + refle x HPV mRNA E6/E7 review cytotechnolo gist: normal LMT, CT( CP) CT scree chery locat ion: [address] [address] [place] [address] Not Available [facility] [address] [address] [place], [address], 03/25/2018 07:09:34 03/18/20 18 03/25/2018 pap, LB [...] clini niru infor matio n. Not Available [facility] [address] [address] [place], [address], 03/25/2018 07:09:34 04/08/20 19 04/10/2019 pap, LB + refle x HPV mRNA E6/E7 clinical information: normal Routi ne exam Not Available [facility] [address] [address] [place], [address], 04/10/2019 15:35:10 04/08/20 19 04/10/2019 pap, LB + refle x HPV mRNA E6/E7 LMP: 8 normal Not Available [address] [address], [place], [address], 04/10/2019 15:35:10 04/08/20 19 04/10/2019 pap, LB + refle x HPV mRNA E6/E7 prev. Pap: normal INFOR MATIO N NOT PROVI DED Not Available [address] [address], [place], [address], 04/10/2019 15:35:10 04/08/20 19 04/10/2019 pap, LB + refle x HPV mRNA E6/E7 prev. BX: normal INFOR MATIO N NOT PROVI DED Not Available [address] [address] [place], [address], 04/10/2019 15:35:10 04/08/20 19 04/10/2019 pap, LB + refle x HPV mRNA E6/E7 source: normal Cervi x, Endoc ervix Not Available [address] [address] [place], [address], 04/10/2019 15:35:10 04/08/20 19 04/10/2019 pap, LB + refle x HPV mRNA E6/E7 statement of adequacy: normal Satis facto ry for evalu ation . Endoc ervic al/tr ansfo rmati on zone compo nent absen t. Not Available [address] [address] [place], [address], 04/10/2019 15:35:10 04/08/20 19 04/10/2019 pap, LB + refle x HPV mRNA E6/E7 interpretati on/result: normal Negat florence for intra epith elial lesio n or malig santos . Not Available [address] [address] [place], [address], 04/10/2019 15:35:10 04/08/20 19 04/10/2019 pap, LB + refle x HPV mRNA E6/E7 cytotechnolo gist: normal AMW, CT( CP) CT scree chery locat ion: [place] [address] [place] [address] Not Available [facility] [address] [address] [place], [address], 04/10/2019 15:35:10 04/08/20 19 04/10/2019 pap, LB + refle x HPV mRNA E6/E7 review cytotechnolo gist: normal MLO, CT( CP) CT scree chery locat ion: [employer] [place] [address] [address] [place] [address] Not Available [facility] [address] [address] [place], [address], 04/10/2019 15:35:10 04/08/20 19 04/10/2019 pap, LB [...] clini niru infor matio n. Not Available [address] [address] [place], [address], 04/10/2019 15:35:10 04/08/2004/08/2019 fecal occul t blood , stool Occult Blood negati ve Not Available In-Office Order Internal Use Only DO Not Attach Compendium DO Not Attach Compendium, Do Not Delete/merge, [id number] 04/08/2019 16:41:49 04/17/20 24 04/25/2024 IGP, RFX APTIM A HPV ASCU diagnosis: COMMEN T LOURDES [place]OR[place] FOR INTRA EPITH ELIAL LESIO N OR MALIG SANTOS . Not Available [facility] ([facility]) [address] [place], [address], 04/25/2024 16:19:32 04/17/20 24 04/25/2024 IGP, RFX APTIM A HPV ASCU specimen adequacy: OMEGA T Satis facto ry for evalu ation . Not Available [facility] ([facility]) [address] [place], [address], 04/25/2024 16:19:32 04/17/20 24 04/25/2024 IGP, RFX APTIM A HPV ASCU clinician provided ICD10: OMEGA Lopez Z01.4 19 Not Available [facility] ([facility]) [address] [place], [address], 04/25/2024 16:19:32 04/17/20 24 04/25/2024 IGP, RFX APTIM A HPV ASCU performed by: Raymond Wang (ASCP ) Not Available [facility] ([facility]) [address] [place], [address], 04/25/2024 16:19:32 04/17/20 24 04/25/2024 IGP, RFX APTIM A HPV ASCU . . Not Available [facility] ([facility]) [address] [place], [address], 04/25/2024 16:19:32 04/17/20 24 04/25/2024 IGP, RFX APTIM A HPV ASCU note: OMEGA T The Pap smear is a scree chery [...] ts do occur . Not Available [facility] ([facility]) [address] [facility], [place], [address], 04/25/2024 16:19:32 04/17/20 24 04/25/2024 IGP, RFX APTIM A HPV ASCU test methodology: COMMEN T This liqui d based ThinP rep(R ) pap test was scree basim with the use of an image guide d syste m. Not Available [facility] ([facility]) [address] [facility], [place], [address], 04/25/2024 16:19:32 04/17/20 24 04/25/2024 IGP, RFX APTIM A HPV ASCU . COMMEN T The HPV DNA refle x crite giovana were not met with this speci men resul t there fore, no HPV testi ng was perfo rmed. Not Available [facility] ([facility]) [address] [facility], [place], [address], 04/25/2024 16:19:32 Result Notes None recorded. Problems No Known Problems Procedures Surgical History Date Name Laterality Status Provider Name and Address Organization Details Recorded Time 4 Date of Last Pap Smear completed MARIA EUGENIA Greene [facility] 04/25/2024 16:28:53 7 Dilation and Curettage completed Chayo Cheek MA [facility] 08/07/2016 16:51:26 7 Colposcopy completed Enrique Price MD Attn: Accounting,[address] [facility], [place], [address], [facility] 06/21/2016 12:37:39 Back Surgery completed aMry Cancino RN [facility] 06/12/2016 17:39:41 Tubal Ligation completed Mary Cancino RN [facility] 06/12/2016 17:40:00 Imaging Results None recorded. Procedure Notes None recorded. Medical Equipment None Reported. Allergies Allergen ID Allergen Name Allergen Category Reaction Reaction Severity Criticality Documentation Date Start Date Code Code System Note Provider Name and Address Organization Details Recorded Time 10543 azithromy malini medicatio n Not available Not available Not available 06/12/2016 83292 RxNorm Not Available Not Available Not Available 06366 Product containin g penicilli n (product) medicatio n Not available Not available Not available 06/12/2016 77057 8001 SNOMED Not Available Not Available Not Available 24779 Substance with sulfonami de structure and antibacte rial mechanism of action (substanc e) medicatio n Not available Not available Not available 06/12/2016 35804 8003 SNOMED Not Available Not Available Not [...] Updated DateTime 03/18/2018 166.37 cm 29.8 kg/m2 19545.81 g 106 mm[Hg] 72 mm[Hg] Chayo hackett [place] - [facility] 8 11:14:14 Date Recorded Body height Body mass index (BMI) Body weight Systolic blood pressure Diastolic blood pressure Provider Name and Address Organization Details Last Updated DateTime 04/08/2019 166.37 cm 29.2 kg/m2 94050.87 g 136 mm[Hg] 84 mm[Hg] Chayo hackett [place] - [facility] 9 16:46:19 Date Recorded Body weight Systolic blood pressure Diastolic blood pressure Provider Name and Address Organization Details Last Updated DateTime 12/08/2021 03190.84 g 126 mm[Hg] 80 mm[Hg] Candace Keller [facility] 12/08/2021 16:14:28 Date Recorded Body height Body mass index (BMI) Body weight Systolic blood pressure Diastolic blood pressure Provider Name and Address Organization Details Last Updated DateTime 04/17/2024 166.37 cm 28.2 kg/m2 02636.89 g 125 mm[Hg] 80 mm[Hg] Candace Keller [facility] 4 15:32:47 Date Recorded Body height Body mass index (BMI) Body weight Systolic blood pressure Diastolic blood pressure Provider Name and Address Organization Details Last Updated DateTime 12/25/2016 166.37 cm 29.5 kg/m2 76951.7 g 118 mm[Hg] 78 mm[Hg] Chayo hackett MA [facility] 7 16:37:06 Social History Question Answer Notes LastModified by Organizat ion Details LastModified Time Tobacco Smoking Status Never Smoker Mary Cancino RN [facility], [facility] 06/12/2016 17:39:03 What Was The Date [...] SNOMED-CT Code Diagnosis ICD10 Code Diagnosis Note [id number] MD Esdras Wright Women ([facility] [address]) [address] [facility] [place] [address] 06/21/2016 11:37:12 06/22/2016 11:52:48 Atypical glandular cells on cervical Papanicolaou smear 585662065 R87.978 [id number] MD Esdras Wright ([facility] 205) [address] [facility] [place] [address] 08/07/2016 16:39:46 08/08/2016 09:33:10 Atypical glandular cells on cervical Papanicolaou smear 300840828 R87.674 [id number] [facility] 205) [address] [facility] [place] [address] 12/25/2016 16:15:37 12/26/2016 12:53:29 Atypical glandular cells on cervical Papanicolaou smear 002850115 R87.798 [id number] MD Esdras Wright 14 OB [address] [facility] [place] [address] 03/18/2018 10:20:33 03/20/2018 13:00:07 Gynecologic examination 33197368 Z01.419 Screening for malignant neoplasm of breast 781653812 Z12.31 Screening for malignant neoplasm of colon 293183455 Z12.11 [id number] MD Esdras Wright 14 OB [address] [facility] [place] [address] 04/08/2019 16:35:30 04/11/2019 13:57:40 Gynecologic examination 03404502 Z01.419 Screening for malignant neoplasm of colon 942178072 Z12.11 Screening for malignant neoplasm of breast 481773780 Z12.31 Menopause present 307740 006 N95.1 [id number] Mary Cancino RN [place] [address] OB [address] [facility] [place] [address] 12/08/2021 15:57:54 12/10/2021 03:47:05 [id number] MD Esdras Wright 14 OB [address] [facility] [place] [address] 04/17/2024 15:03:46 04/18/2024 08:24:46 Depression screening 440560929 Z13.31 Overweight 632613603 E66 .3 Gynecologi c examination 34095900 Z01.419 Screening for malignant neoplasm of breast 126748540 Z12.31 Health Concerns Section Related Observation LastModified by Organization Detai ls LastModified Time None Recorded Concern Status LastModified by Organization Details LastModified Time None Recorded Advance Directives Directive None Recorded Payers Encounter Date Sequence Insurance Name Policy Number Policy Ely Covered Member ID Ely Member ID Guarantor Name 12/25/2016 1 [employer] (POS) [id number] Misti L Latempt [id number] Misti L Latempt 03/18/2018 1 [employer] (POS) [id number] Misti L Latempt [id number] Misti L Latempt 04/08/2019 1 [employer] (POS) [id number] Misti L Latempt [id number] Misti L Latempt 12/08/2021 1 [employer] (POS) [id number] Misti L Latempt [id number] Misti L Latempt 04/17/2024 1 [employer] (POS) [id number] Misti L Latempt [id number] Misti L Latempt Notes Date Note Type Note Provider Name and Address Organization Details Recorded Time 03/18/2018 text/html Annual Electronics Design Engineer Post-MenopausalRep orted bypatient.Menopaus al Symptoms:no menopausal symptoms; normal vaginal lubrication Vaginal Bleeding:history of menopause having occurred; no history of post menopausal bleeding Urinary Symptoms:no hematuria; no incontinence; no nocturia; no urinary frequency Vulva:no genital lesion; no vulvar atrophy Vagina:normal vaginal discharge; no vaginal atrophy Breast:no breast lump; no nipple discharge; no breast pain Sexual Complaints:no sexual complaints Psychological Symptoms:no depression; no anxiety Enrique Price MD Attn: Accounting,[address] [place], [address], [place] [facility] 03/18/2018 11:36:29 04/08/2019 text/html Annual Electronics Design Engineer Post-MenopausalRep orted bypatient.Menopaus al Symptoms:no menopausal symptoms; normal vaginal lubrication Vaginal Bleeding:history of menopause having occurred; no history of post menopausal bleeding Urinary Symptoms:no hematuria; no incontinence; no nocturia; no urinary frequency Vulva:no genital lesion; no vulvar atrophy Vagina:normal vaginal discharge; no vaginal atrophy Breast:no breast lump; no nipple discharge; no breast pain Sexual Complaints:no sexual complaints Psychological Symptoms:no depression; no anxiety Enrique Price MD Attn: Accounting,[address] [place], [address], [facility] 04/08/2019 17:18:22 04/17/2024 text/html Annual Electronics Design Engineer Post-MenopausalRep orted bypatient.Menopaus al Symptoms:no menopausal symptoms; normal vaginal lubrication Vaginal Bleeding:history of menopause having occurred; no history of post menopausal bleeding Urinary Symptoms:no hematuria; no incontinence; no nocturia; no urinary frequency Vulva:no genital lesion; no vulvar atrophy Vagina:normal vaginal discharge; no vaginal atrophy Breast:no breast lump; no nipple discharge; no breast pain Sexual Complaints:no sexual complaints Psychological Symptoms:no depression; no anxiety Enrique Price MD Attn: Accounting,[address] [place], [address], [facility] 04/17/2024 15:53:18 OBGyn Episode Ob Episode Information Episode Created Date Number of Fetuses Patient Bloodtype Patient rh Status Prepregnancy Weight lbs Domestic Partner Domestic Partner Phone Father Name Php Consultant Status 06/12/19 17 1 CLOSED Fetus Data First Name Last Name Admitted to NICU Weight (g) Sex Living Outcome Pediatric Complications Fetus ID Race Codes Race Delivery Type 4082.32 8 M [id number] Vaginal Kings Calculation Initial Kings Date Initial [...]
--- OUTSIDE RECORDS SUMMARY | 2024-08-05 13:31 | XMS_ITS | Referral Summary ---
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
--- OUTSIDE RECORDS SUMMARY | 2024-08-05 13:31 | XMS_ITS | Clinical Summary ---
Author Organization [facility] Address [address] [place] [address] Phone Care Team Providers Care Pipe Organ Technician Name Role Phone Norris Stacy MD Primary Care Provider [phone] Allergies Active Allergy Reactions Criticality Noted Date [...] Comments DTAP/TDAP/TD VACCINES (1 - Tdap) 1981 HPV/Cotest (21-29) 09/25/1983 PAP SMEAR 09/25/1983 CERVICAL CANCER SCREENING 1992 HPV/Cotest (30-65) 1992 PAP SMEAR 1992 BREAST CANCER SCREENING 2002 COLORECTAL SCREENING 09/25/2007 Colorectal Cancer Screening 09/25/2007 FIT-DNA Q 3 years 09/25/2007 FIT/FOBT Q 1 year 09/25/2007 Flex Sig/CT Colonography Q 5 years 09/25/2007 ZOSTER VACCINE (1 of 2) 2012 INFLUENZA VACCINE (#1) 2023 RSV VACCINE (60+ or ) (1 - 1-dose 75+ series) 2037 PNEUMOCOCCAL VACCINE 0-49 YEARS Aged Out No longer eligible based on patient's age to complete this topic Insurance [employer] CHOICE POS II Care Teams Pipe Organ Technician Relationship Specialty Start Date End Date Norirs Stacy MD [address] [id number] PCP - General Family Practice 08/10/20
== END 2024-08-05 12:23 | disposition home or self-care (01) ==
LOC: CHSIMG 12:25
PROVIDERS: PCP Family Medicine; Visit Provider Nurse Practitioner
DX: Z12.31 Encounter for screening mammogram for malignant neoplasm of breast (principal)
CPT/HCPCS: 77063; 77067

== ENCOUNTER 2024-08-13 00:26 | Day surgery (SDC) | payer OTHER, SELFPAY ==
[2024-08-08 14:31] VITALS: BMI 26.3
--- OUTSIDE RECORDS SUMMARY | 2024-08-13 00:28 | XMS_ITS | Clinical Summary ---
Author Organization [facility] Address [address] [place] [id number] Care Team Providers Care Supervisor Park Workers Name Role Phone Martin Dedra Mendieta Primary Care Provider [phone] Encounters Date Type Department Care Team Description 08/11/2024 9:43 AM CDT Hospital Encounter [facility] [address] [place] [address] Alma Rosa Patel APRN Arrived 08/11/2024 Travel from Last 3 Months Social History Tobacco Use Types Packs/Day Years Used Date Smoking Tobacco: Never Assessed Comments Unknown Sex and Gender Information Value Date Recorded Sex Assigned at Female 08/11/2024 9:40 AM CDT Legal Sex Female 10:33 AM CDT Gender Identity Not on file Sexual Orientation Not on file Plan of Treatment Health Maintenance Due Date Last Done Comments Cervical Cancer Screening Pa p Smear (Age 30 to 64) Every 3 Years 1962 Colorectal Cancer Screening Colonoscopy (10 Years) 1962 Annual Physical 1965 Hepatitis C 1980 Cervical Cancer Screening Pa p with HPV Testing (Age 30 to 64) Every 5 Years 1992 Cervical Cancer Screening wi th HPV 1992 Mammogram Screening 2002 Pneumococcal Vaccine: 50+ Years (1 of 1 - PCV) 2012 Zoster Vaccines (1 of 2) 2012 COVID-19 Vaccine (3 - 2023-2 5 season) 2023 07/22/2020, 07/01/2020 DTaP, Tdap and Td Vaccines ( 2 - Td or Tdap) 10/29/2029 10/30/2019 RSV Immunization or 60+ Years (1 - 1-dose 75+ series) 2037 Meningococcal B Vaccine Aged Out No l onger eligible based on patient's age to complete this topic Meningococcal Vaccine Aged Out No nel chanel eligible based on patient's age to complete this topic RSV Immunizations Under 20 Months Aged Out No longer eligible b ased on patient's age to complete this topic Procedures Procedure Name Priority Date/Time Associated Diagnosis Comments CT HEART SCREEN CALCIUM SCORE PROMO Routine 08/11/2024 10:06 AM CDT Hyperlipidemia, unspecified from Last 3 Months Results * CT HEART SCREEN CALCIUM SCORE PROMO (08/11/2024 10:06 AM CDT) Anatomical Region Laterality Modality Chest Computed Tomogra phy 08/11/2024 10:1 4 AM CDT Impressions 08/11/2024 10:14 AM CDT =====IMPRESSION:===== Total Score: 0 No plaque, very low risk, very unlikely for probability of significant CAD Ordered By: ALMA ROSA PATEL Interpreted By: Holland Quintanilla MD, 08/11/2024 10:14 AM Narrative 08/11/2024 10:14 AM CDT [address] [address] EXAMINATION: Multislice Helical CT Coronary Calcium Scoring REASON FOR EXAM: Screening for heart disease COMPARISON: None TECHNIQUE: Multislice helical CT images of the proximal coronary arteries with a computer generated calcification score. A dose lowering technique was used for this procedure, which may include, but is not limited to, dose reduction technique, automated exposure control, iterative reconstruction, ALARA (As Low As Reasonably Achievable), or Image Gently techniques. Results: Left main: 0 LAD: 0 Circumflex: 0 Right coronary: 0 Total Score: 0 Comments: There is no mediastinal adenopathy, and there are no pulmonary nodules in the visualized portions of the chest. Calcium score guidelines: Total Score* Calcium Plaque Tutor Key *Risk *Probability of significant CAD 0 No Plaque Very Low Very unlikely 1-10 Minimal Plaque Low Unlikely 11-100 Mild Plaque Moderate Low likelihood of significant stenosis <50% 101-400 Moderate Plaque Moderately High Moderate likelihood of significant stenosis (>50%) Over 400 Extensive Plaque High High likelihood of significant stenosis (>50%) The amount of coronary artery calcification correlates with the severity of coronary atherosclerosis and the probability of future significant event. Calcification is not site specific for stenosis and does not identify non-calcified atherosclerotic plaque, but rather indicates the extent of atherosclerosis in the coronary arteries overall. The score may be used as an indicator for risk factor modification or additional cardiac testing. Significant change in calcium score over time may be indicative of subsequent disease development or useful as a benchmark to assess preventative programs. Procedure Note Holland Quintanilla MD - 08/11/2024 [place] [id number] EXAMINATION: Multislice Helical CT Coronary Calcium Scoring REASON FOR EXAM: Screening for heart disease COMPARISON: None TECHNIQUE: Multislice helical CT images of the proximal coronary arterieswith a computer generated calcification score. A dose lowering techniquewas used for this procedure, which may include, but is not limited to,dose reduction technique, automated exposure control, iterativereconstruction, ALARA (As Low As Reasonably Achievable), or Image Gentlytechniques. Results: Left main: 0 LAD: 0 Circumflex: 0 Right coronary: 0 Total Score: 0 Comments: There is no mediastinal adenopathy, and there are no pulmonarynodules in the visualized portions of the chest. Calcium score guidelines: Total Score* Calcium Plaque Tutor Key *Risk *Probability ofsignificant CAD 0 No Plaque Very LowVery unlikely 1-10 Minimal Plaque LowUnlikely 11-100 Mild Plaque ModerateLow likelihood of significant stenosis <50% 101-400 Moderate Plaque Moderately HighModerate likelihood of significant stenosis (>50%) Over 400 Extensive Plaque HighHigh likelihood of significant stenosis (>50%) The amount of coronary artery calcification correlates with the severityof coronary atherosclerosis and the probability of future significantevent. Calcification is not site specific for stenosis and does notidentify non-calcified atherosclerotic plaque, but rather indicates theextent of atherosclerosis in the coronary arteries overall. The score may be used as an indicator for risk factor modification oradditional cardiac testing. Significant change in calcium score over timemay be indicative of subsequent disease development or useful as abenchmark to assess preventative programs. =====IMPRESSION:===== Total Score: 0 No plaque, very low risk, very unlikely for probability ofsignificant CAD Ordered By: ALMA ROSA PATEL Interpreted By: Holland Quintanilla MD, 08/11/2024 10:14 AM us Alma Rosa Patel FILTER MACHINE OPERATOR CT Final Result from Last 3 Mon[place] [id number] Care Teams Supervisor Park Workers Relationship Specialty Start Date End Date Dedra Martin DO [address] [place] [address] PCP - General 08/08/24
--- OUTSIDE RECORDS SUMMARY | 2024-08-13 00:28 | XMS_ITS | Clinical Summary ---
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
--- OUTSIDE RECORDS SUMMARY | 2024-08-13 00:28 | XMS_ITS | Clinical Summary ---
Author Organization [facility] Address [address] [place] [address] Phone Care Team Providers Care Revenue Enforcement Collection Agent Name Role Phone Norris Stacy MD Primary Care Provider [phone] Allergies Active Allergy Reactions Criticality Noted Date [...] (1 - Tdap) 1981 HPV/Cotest (21-29) 09/25/1983 CERVICAL CANCER SCREENING 1992 HPV/Cotest (30-65) 1992 PAP SMEAR 1992 BREAST CANCER SCREENING 2002 COLORECTAL SCREENING 09/25/2007 Colorectal Cancer Screening 09/25/2007 FIT-DNA Q 3 years 09/25/2007 FIT/FOBT Q 1 year 09/25/2007 Flex Sig/CT Colonography Q 5 years 09/25/2007 ZOSTER VACCINE (1 of 2) 2012 INFLUENZA VACCINE (#1) 2023 RSV VACCINE (60+ or ) (1 - 1-dose 75+ series) 2037 Insurance [employer] CHOICE POS II Care Teams Revenue Enforcement Collection Agent Relationship Specialty Start Date End Date Norris Stacy MD [address] [place] [address] PCP - General Family Practice 08/10/20
--- OUTSIDE RECORDS SUMMARY | 2024-08-13 00:28 | XMS_ITS | Referral Summary ---
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
--- OUTSIDE RECORDS SUMMARY | 2024-08-13 00:28 | XMS_ITS | Data Portability ---
Author Organization [facility] Angela HOFFMAN Address [address] [place] [address] Care Team Providers Care Founder Chairman And Chief Creative Officer Name Role Phone ENRIQUE PRICE Anesthesiologist Assistant Certified Assessment Encounter Date Assessment Date Assessment LastModified by Organization Details LastModified Time 12/25/2016 12/25/2016 pap repeated today after SUSIE history Not available 12/25/2016 16:43:08 03/18/2018 03/18/2018 metal bonder exam normal. Discussed hx of SUSIE pap ; work up with D&C and ECC was (-) discussed LGSIL and ascus with HPV as well otherwise good spirits Not available 03/18/2018 11:36:02 04/08/2019 04/08/2019 metal bonder exam normal, no new issues. recent past hx of abnormals reviewed ; normal SUSIE workup in 2017. last pap normal... menopausal, doing well with black cohash and evening primrose [employer] son just got in [place]. a big damn deal... Not available 04/08/2019 17:18:06 04/17/2024 04/17/2024 metal bonder exam normal not seen in a few years, no new issues Not available 04/17/2024 15:53:04 Plan of Treatment Reminders Order Date Submit Date Provider Last Modified By Organization Details Last Modified Time Details Appointments None recorded. Lab cytology report, thin prep, smear or scraping, cervical or vaginal 2023 024 [facility], [address] [facility] [address], [place], [address], 12/27/202 4 16:19:32 pap, LB + reflex HPV mRNA E6/E7 - Broom only 2018 019 [employer] - [facility], [address], [place], [address], 9 15:35:11 fecal occult blood, stool 2018 019 In-Office Order, Internal Use Only DO Not Attach Compendium DO Not Attach Compendium, Do Not Delete/merge, [id number] 9 17:11:54 pap, LB + reflex HPV mRNA E6/E7 - Broom only 2017 018 [employer] - [place] [facility], [address], [place], [address], 8 07:09:35 pap, IG + reflex HR HPV - Reflex if ASCUS 2016 017 [employer] - [facility], [address], [place], [address], 7 16:26:16 Referral None recorded. Procedures None recorded. Surgeries None recorded. Imaging MAMMO, screening, digital, bilateral 2023 024 [facility], [address] [place], [address], 5 14:26:13 MAMMO, screening, digital, bilateral 2018 019 Not available 9 17:11:55 MAMMO, screening, digital, bilateral 2017 018 [email or web address] Not available 8 11:25:03 Medication Orders None recorded. Patient TargetsNo targets recorded. Patient Instructions Encounter Date Encounter Id Patient Instructions Last Modified By Organization Details Last Modified Time 03/18/2018 [id number] learning about breast cancer screening Not available 03/18/2018 11:17:23 04/08/2019 [id number] learning about breast cancer screening Not available 04/08/2019 17:11:55 04/17/2024 [id number] A healthy lifestyle: care instructions Not available 04/17/2024 15:36:43 learning about breast cancer screening Not available 04/17/2024 15:36:43 Reason for Referral None Reported. Results Created Date Observation Date Name Description Value Unit Range Abnormal Flag Note LastModifiedBy Organization Detail LastModifiedTime 12/26/19 17 12/28/2016 pap, LB + refle x HPV mRNA E6/E7 clinical information: normal Routi ne exam Not Available [address], [address], 12/28/2016 16:26:16 12/26/19 17 12/28/2016 pap, LB + refle x HPV mRNA E6/E7 LMP: 7 normal Not Available [address], [address], 12/28/2016 16:26:16 12/26/19 17 12/28/2016 pap, LB + refle x HPV mRNA E6/E7 prev. Pap: normal INFOR MATIO N NOT PROVI DED Not Available [address], [address], 12/28/2016 16:26:16 12/26/19 17 12/28/2016 pap, LB + refle x HPV mRNA E6/E7 prev. BX: normal INFOR MATIO N NOT PROVI DED Not Available [address], [address], 12/28/2016 16:26:16 12/26/19 17 12/28/2016 pap, LB + refle x HPV mRNA E6/E7 source: normal Cervi x, Endoc ervix Not Available [address], [address], 12/28/2016 16:26:16 12/26/19 17 12/28/2016 pap, LB + refle x HPV mRNA E6/E7 statement of adequacy: normal Satis facto ry for evalu ation . Endoc ervic al/tr ansfo rmati on zone compo nent prese nt. Not Available [address] [address] [place], [address], 12/28/2016 16:26:16 12/26/19 17 12/28/2016 pap, LB + refle x HPV mRNA E6/E7 interpretati on/result: normal Negat florence for intra epith elial lesio n or malig santos . Not Available [address] [address] [place], [address], 12/28/2016 16:26:16 12/26/19 17 12/28/2016 pap, LB + refle x HPV mRNA E6/E7 comment: normal This Pap test has been evalu ated with compu ter morgan evan techn ology . Not Available [address] [address] [place], [address], 12/28/2016 16:26:16 12/26/19 17 12/28/2016 pap, LB + refle x HPV mRNA E6/E7 cytotechnolo gist: normal PCM, CT( CP) CT scree chery locat ion: [address] [address] [place] [address] Not Available [address] [address] [place], [address], 12/28/2016 16:26:16 03/18/20 18 03/25/2018 pap, LB + refle x HPV mRNA E6/E7 clinical information: normal Routi ne exam Hx of abnor mal Pap/B x withi n 3 years Not Available [address] [address] [place], [address], 03/25/2018 07:09:34 03/18/20 18 03/25/2018 pap, LB + refle x HPV mRNA E6/E7 LMP: [id number] 18 normal Not Available [address] [address] [place], [address], 03/25/2018 07:09:34 03/18/20 18 03/25/2018 pap, LB + refle x HPV mRNA E6/E7 prev. Pap: normal INFOR MATIO N NOT PROVI DED Not Available [address] [address] [place], [address], 03/25/2018 07:09:34 03/18/20 18 03/25/2018 pap, LB + refle x HPV mRNA E6/E7 prev. BX: normal INFOR MATIO N NOT PROVI DED Not Available [address] [address] [place], [address], 03/25/2018 07:09:34 03/18/20 18 03/25/2018 pap, LB + refle x HPV mRNA E6/E7 source: normal Cervi x, Endoc ervix Not Available [address] [address] [place], [address], 03/25/2018 07:09:34 03/18/20 18 03/25/2018 pap, LB + refle x HPV mRNA E6/E7 statement of adequacy: normal Satis facto ry for evalu ation . Endoc ervic al/tr ansfo rmati on zone compo nent absen t. Not Available [address] [address] [place], [address], 03/25/2018 07:09:34 03/18/20 18 03/25/2018 pap, LB + refle x HPV mRNA E6/E7 interpretati on/result: normal Negat florence for intra epith elial lesio n or al graham . Not Available [address] [address] [place], [address], 03/25/2018 07:09:34 03/18/20 18 03/25/2018 pap, LB + refle x HPV mRNA E6/E7 comment: normal This Pap test has been evalu ated with compu ter morgan evan techn ology . Not Available [address] [address] [place], [address], 03/25/2018 07:09:34 03/18/20 18 03/25/2018 pap, LB + refle x HPV mRNA E6/E7 cytotechnolo gist: normal TMK, CT( CP) CT scree chery locat ion: [address] [address] [place] [address] Not Available [facility] [place] [address] [address] [place], [address], 03/25/2018 07:09:34 03/18/20 18 03/25/2018 pap, LB + refle x HPV mRNA E6/E7 review cytotechnolo gist: normal LMT, CT( CP) CT scree chery locat ion: [address] [address] [place] [address] Not Available [facility] [address] [address] [place], [address], 03/25/2018 07:09:34 03/18/20 18 03/25/2018 pap, LB [...] clini niru infor matio n. Not Available [address] [address] [place], [address], 03/25/2018 07:09:34 04/08/20 19 04/10/2019 pap, LB + refle x HPV mRNA E6/E7 clinical information: normal Routi ne exam Not Available [facility] [address] [address] [place], [address], 04/10/2019 15:35:10 04/08/20 19 04/10/2019 pap, LB + refle x HPV mRNA E6/E7 LMP: 8 normal Not Available [address] [place], [address], 04/10/2019 15:35:10 04/08/20 19 04/10/2019 pap, LB + refle x HPV mRNA E6/E7 prev. Pap: normal INFOR MATIO N NOT PROVI DED Not Available [address] [address] [place], [address], 04/10/2019 15:35:10 04/08/20 19 04/10/2019 pap, LB + refle x HPV mRNA E6/E7 prev. BX: normal INFOR MATIO N NOT PROVI DED Not Available [address] [place], [address], 04/10/2019 15:35:10 04/08/20 19 04/10/2019 pap, LB + refle x HPV mRNA E6/E7 source: normal Cervi x, Endoc ervix Not Available [address] [place], [address], 04/10/2019 15:35:10 04/08/20 19 04/10/2019 pap, LB + refle x HPV mRNA E6/E7 statement of adequacy: normal Satis facto ry for evalu ation . Endoc ervic al/tr ansfo rmati on zone compo nent absen t. Not Available [address] [place], [address], 04/10/2019 15:35:10 04/08/20 19 04/10/2019 pap, LB + refle x HPV mRNA E6/E7 interpretati on/result: normal Negat florence for intra epith elial lesio n or malig santos . Not Available [address] [address] [place], [address], 04/10/2019 15:35:10 04/08/20 19 04/10/2019 pap, LB + refle x HPV mRNA E6/E7 cytotechnolo gist: normal AMW, CT( CP) CT scree chery locat ion: [address] [address] [place] [address] Not Available [facility] [address] [address] [place], [address], 04/10/2019 15:35:10 04/08/20 19 04/10/2019 pap, LB + refle x HPV mRNA E6/E7 review cytotechnolo gist: normal MLO, CT( CP) CT scree chery locat ion: [facility] [place] [address] [address] [place] [address] Not Available [facility] [address] [address] [place], [address], 04/10/2019 15:35:10 04/08/20 19 04/10/2019 pap, LB [...] clini niru infor matio n. Not Available [facility] [address] [address] [address], [place], [address], 04/10/2019 15:35:10 04/08/20 19 04/08/2019 fecal occul t blood , stool Occult Blood negati ve Not Available In-Office Order Internal Use Only DO Not Attach Compendium DO Not Attach Compendium, Do Not Delete/merge, [id number] 04/08/2019 16:41:49 04/17/20 24 04/25/2024 IGP, RFX APTIM A HPV ASCU diagnosis: COMMEN T NEGAT [place] FOR INTRA EPITH ELIAL STEPHANIE Hackett OR AL GRAHAM . Not Available [facility] ([facility]) [address] [facility], [place], [address], 04/25/2024 16:19:32 04/17/20 24 04/25/2024 IGP, RFX APTIM A HPV ASCU specimen adequacy: OMEGA Lopez Satis facto ry for evalu ation . Not Available [facility] ([facility]) [address] [facility], [place], [address], 04/25/2024 16:19:32 04/17/20 24 04/25/2024 IGP, RFX APTIM A HPV ASCU clinician provided ICD10: OMEGA Lopez Z01.4 19 Not Available [facility] ([facility]) [address] [facility], [place], [address], 04/25/2024 16:19:32 04/17/20 24 04/25/2024 IGP, RFX APTIM A HPV ASCU performed by: Raymond Wang (ASCP ) Not Available [facility] ([facility]) [address] [facility], [place], [address], 04/25/2024 16:19:32 04/17/20 24 04/25/2024 IGP, RFX APTIM A HPV ASCU . . Not Available [facility] ([facility]) [address] [place], [address], 04/25/2024 16:19:32 04/17/20 24 04/25/2024 IGP, RFX [...] ts do occur . Not Available [facility] ([facility]) [address] [facility], [place], [address], 04/25/2024 16:19:32 04/17/20 24 04/25/2024 IGP, RFX APTIM A HPV ASCU test methodology: COMMEN T This liqui d based ThinP rep(R ) pap test was scree basim with the use of an image guide conner olivarez. Not Available [facility] ([facility]) [address] [facility], [place], [address], 04/25/2024 16:19:32 04/17/20 24 04/25/2024 IGP, RFX APTIM A HPV ASCU . COMMEN T The HPV DNA refle x crite giovana were not met with this speci men resul t there fore, no HPV testi ng was perfo rmed. Not Available [facility] ([facility]) [address] [facility], [place], [address], 04/25/2024 16:19:32 Result Notes None recorded. Problems No Known Problems Procedures Surgical History Date Name Laterality Status Provider Name and Address Organization Details Recorded Time 4 Date of Last Pap Smear completed MARIA EUGENIA Greene [facility] 04/25/2024 16:28:53 7 Dilation and Curettage completed Chayo Cheek MA [facility] 08/07/2016 16:51:26 7 Colposcopy completed Enrique Price MD Attn: Accounting,[address] [place], [address], [facility] [place] [place] 06/21/2016 12:37:39 Back Surgery completed Mary Cancino RN [facility] 06/12/2016 17:39:41 Tubal Ligation completed Mary Cancino RN [facility] 06/12/2016 17:40:00 Imaging Results None recorded. Procedure Notes None recorded. Medical Equipment None Reported. Allergies Allergen ID Allergen Name Allergen Category Reaction Reaction Severity Criticality Documentation Date Start Date Code Code System Note Provider Name and Address Organization Details Recorded Time 54799 azithromy malini medicatio n Not available Not available Not available 06/12/2016 32396 RxNorm Not Available Not Available Not Available 05051 Product containin g penicilli n (product) medicatio n Not available Not available Not available 06/12/2016 68342 8001 SNOMED Not Available Not Available Not Available 95465 Substance with sulfonami de structure and antibacte rial mechanism of action (substanc e) medicatio n Not available Not available Not available 06/12/2016 61183 8003 SNOMED Not Available Not Available Not [...] Updated DateTime 03/18/2018 166.37 cm 29.8 kg/m2 60534.81 g 106 mm[Hg] 72 mm[Hg] Chayo hackett [place] - [facility] 8 11:14:14 Date Recorded Body height Body mass index (BMI) Body weight Systolic blood pressure Diastolic blood pressure Provider Name and Address Organization Details Last Updated DateTime 04/08/2019 166.37 cm 29.2 kg/m2 69190.87 g 136 mm[Hg] 84 mm[Hg] Chayo hackett [place] [facility] 9 16:46:19 Date Recorded Body weight Systolic blood pressure Diastolic blood pressure Provider Name and Address Organization Details Last Updated DateTime 12/08/2021 97665.84 g 126 mm[Hg] 80 mm[Hg] Candace Chicasce Anam [facility] 12/08/2021 16:14:28 Date Recorded Body height Body mass index (BMI) Body weight Systolic blood pressure Diastolic blood pressure Provider Name and Address Organization Details Last Updated DateTime 04/17/2024 166.37 cm 28.2 kg/m2 43189.89 g 125 mm[Hg] 80 mm[Hg] Candace Grace [facility] 4 15:32:47 Date Recorded Body height Body mass index (BMI) Body weight Systolic blood pressure Diastolic blood pressure Provider Name and Address Organization Details Last Updated DateTime 12/25/2016 166.37 cm 29.5 kg/m2 57114.7 g 118 mm[Hg] 78 mm[Hg] Chayo hackett MA [facility] 7 16:37:06 Social History Question Answer Notes LastModified by Organizat ion Details LastModified Time Tobacco Smoking Status Never Smoker Mary Cancino RN [facility], [facility] 06/12/2016 17:39:03 What Was The Date Of [...] SNOMED-CT Code Diagnosis ICD10 Code Diagnosis Note [id number] MD [place] [facility] ([facility] [address]) [address] [place] [address] 06/21/2016 11:37:12 06/22/2016 11:52:48 Atypical glandular cells on cervical Papanicolaou smear 234336030 R87.166 [id number] MD [place] Wright [facility] ([place] [address]) [address] [place] [address] 08/07/2016 16:39:46 08/08/2016 09:33:10 Atypical glandular cells on cervical Papanicolaou smear 424748674 R87.588 [id number] MD [place] Wright [facility] ([place] [address]) [address] [place] [address] 12/25/2016 16:15:37 12/26/2016 12:53:29 Atypical glandular cells on cervical Papanicolaou smear 280734849 R87.361 [id number] MD [place] Wright [address] [place] [address] 03/18/2018 10:20:33 03/20/2018 13:00:07 Gynecologic examination 13277389 Z01.419 Screening for malignant neoplasm of breast 402561182 Z12.31 Screening for malignant neoplasm of colon 194500989 Z12.11 [id number] MD Dne[place] Wright [address] [place] [place] [address] 04/08/2019 16:35:30 04/11/2019 13:57:40 Gynecologic examination 09341304 Z01.419 Screening for malignant neoplasm of colon 107502319 Z12.11 Screening for malignant neoplasm of breast 389330195 Z12.31 Menopause present 328502 006 N95.1 [id number] Mary Cancino RN [place] [address] [place] [place] [address] 12/08/2021 15:57:54 12/10/2021 03:47:05 [id number] Enrique Price MD [place] [address] [place] [place] [address] 04/17/2024 15:03:46 04/18/2024 08:24:46 Depression screening 072087246 Z13.31 Overweight 716659641 E66 .3 Gynecologi c examination 23560623 Z01.419 Screening for malignant neoplasm of breast 972737878 Z12.31 Health Concerns Section Related Observation LastModified by Organization Detai ls LastModified Time None Recorded Concern Status LastModified by Organization Details LastModified Time None Recorded Advance Directives Directive None Recorded Payers Encounter Date Sequence Insurance Name Policy Number Policy Ely Covered Member ID Ely Member ID Guarantor Name 12/25/2016 1 [employer] (POS) [id number] Misti L Latempt [id number] Misti L Latempt 03/18/2018 1 [employer] (POS) [id number] Misti L Latempt [id number] Misti L Latempt 04/08/2019 1 [employer] (POS) [id number] Misti L Latempt [id number] Misti L Latempt 12/08/2021 1 [employer] (POS) [id number] Misti L Latempt [id number] Misti L Latempt 04/17/2024 1 [employer] (POS) [id number] Misti L Latempt [id number] Misti L Latempt Notes Date Note Type Note Provider Name and Address Organization Details Recorded Time 03/18/2018 text/html Annual Director Process Improvement Post-MenopausalRep orted bypatient.Menopaus al Symptoms:no menopausal symptoms; [...] anxiety Enrique Price MD Attn: Accounting[address] [place], [address], [place] [facility] 03/18/2018 11:36:29 04/08/2019 text/html Annual Director Process Improvement Post-MenopausalRep orted bypatient.Menopaus al Symptoms:no menopausal symptoms; [...] anxiety Enrique Price MD Attn: Accounting[address] [place], [address], [facility] [place] [place] 04/08/2019 17:18:22 04/17/2024 text/html Annual Director Process Improvement Post-MenopausalRep orted bypatient.Menopaus al Symptoms:no menopausal symptoms; [...] anxiety Enrique Price MD Attn: Accounting[address] [place], [address], [facility] [place] 04/17/2024 15:53:18 OBGyn Episode Ob Episode Information Episode Created Date Number of Fetuses Patient Bloodtype Patient rh Status Prepregnancy Weight lbs Domestic Partner Domestic Partner Phone Father Name Gill Tender Status 06/12/19 17 1 CLOSED Fetus Data First Name Last Name Admitted to NICU Weight (g) Sex Living Outcome Pediatric Complications Fetus ID Race Codes Race Delivery Type 4082.32 8 M 48360 Vaginal Kings Calculation Initial Kings Date Initial [...]
--- OUTSIDE RECORDS SUMMARY | 2024-08-13 00:29 | XMS_ITS | Encounter Summary ---
Author Organization [facility] Address [address] [place] [address] Care Team Providers Care Psychologist Personnel Name Role Phone Dedra Martin DO Primary Care Provider [phone] Reason for Referral * Imaging (Routine) - Closed Specialty Diagnoses / Procedures Referred By Elianeac t Referred To Contact RADIOLOGY Diagnoses Hyperlipidemia, unspecified Procedures CT HEART SCREEN CALCIUM SCORE PROMO Alma Rosa Patel APRN [address] [facility] [address] [place] [address] Phone: tel: fax: Referral ID Status Reason Start Date Expiration Date Visits Re quested Visits Authorized [id number] Closed 08/05/2024 08/05/2025 1 1 Reason for Visit * Imaging (Routine) - Closed Specialty Diagnoses / Procedures Referred By Saritha gallegos Referred To Contact RADIOLOGY Diagnoses Hyperlipidemia, unspecified Procedures CT HEART SCREEN CALCIUM SCORE Alma Rosa Kennedy APRN [address] [place] [address] Phone: tel: fax: Referral ID Status Reason Start Date Expiration Date Visits Re quested Visits Authorized [id number] Closed 08/05/2024 08/05/2025 1 1 Encounter Details Date Type Department Care Team (Poncho beyer Contact Info) Description 08/11/2024 9:43 AM CDT Hospital Encounter [facility] [address] [place] [address] Alma Rosa Patle APRN [address] [facility] [address] [place] [address] Arrived Social History Tobacco Use Types Packs/Day Years Used Date Smoking Tobacco: Never Assessed Comments Unknown Sex and Gender Information Value Date Recorded Sex Assigned at Female 08/11/2024 9:40 AM CDT Legal Sex Female 10:33 AM CDT Gender Identity Not on file Sexual Orientation Not on file documented as of this encounter Plan of Treatment Not on file documented as of this encounter Procedures Procedure Name Priority Date/Time Associated Diagnosis Comments CT HEART SCREEN CALCIUM SCORE PROMO Routine 08/11/2024 10:06 AM CDT Hyperlipidemia, unspecified documented in this encounter Results * CT HEART SCREEN CALCIUM SCORE [...] 10:14 AM Narrative 08/11/2024 10:14 AM CDT [address] [address] EXAMINATION: Multislice Helical CT Coronary Calcium Scoring [...] Calcium score guidelines: Total Score* Calcium Plaque [place] *Risk *Probability of significant CAD 0 No [...] Procedure Note [place] Quintanilla MD - 08/11/2024 [place] [id number] EXAMINATION: Multislice Helical CT Coronary Calcium Scoring [...] Calcium score guidelines: Total Score* Calcium Plaque [place] *Risk *Probability ofsignificant CAD 0 No Plaque [...] 08/11/2024 10:14 AM us Alma Rosa Patel [employer] CT Final Result documented in this encounter Visit Diagnoses Diagnosis Hyperlipidemia, unspecified documented in this encounter Care Teams Psychologist Personnel Relationship Specialty Start Date End Date Dedra Martin DO [address] [place] [address] PCP - General 08/08/24 documented as of this encounter
[2024-08-13 11:15] VITALS: BP 104/76; PULSE 78; RESP 18; TEMP 36.1; O2SAT 100; BMI 26.1
[2024-08-13] MEDS: LACTATED RINGERS 1,000 ML 150 ML IV CONT (11:18)
--- NOTE | 2024-08-13 12:14 | P.PNAN_ITS ---
Anes - Eval Pre Procedure Procedure: Operation Date: 08/13/24 12:00 Proposed Procedures p Esophagogastroduodenoscopy & Colonoscopy - Abraham Barron MD Date/Time: 08/13/24 12:14 Pre Op Diagnosis: Dysphagia,abd pain,Screening Patient Data Age: 63 Gender: F Height: 1.68 m Weight: 73.4 kg Last Vital Signs Temp 96.9 F L 08/13/24 11:15 Pulse 78 08/13/24 11:15 Resp 18 08/13/24 11:15 BP 104/76 08/13/24 11:15 Pulse Ox 100 08/13/24 11:15 O2 Del Method Room Air 08/13/24 11:15 Allergies Allergy/AdvReac Type Severity Reaction Status Date / Time crab Allergy Mild Flushing Verified 08/13/24 11:13 azithromycin Allergy Unknown Asthma Verified 08/13/24 11:13 erythromycin base Allergy Unknown Nausea Verified 08/13/24 11:13 Penicillins Allergy Unknown Skin Verified 08/13/24 11:13 Reaction Sulfa (Sulfonamide Allergy Unknown Skin Verified 08/13/24 11:13 Antibiotics) Reaction naproxen AdvReac GI bleed Verified 08/13/24 11:13 Home Medications ?Medication ?Instructions ?Recorded ?Confirmed ?Type cholecalciferol (vitamin D3) 125 125 mcg PO DAILY 07/30/24 08/13/24 History mcg (5,000 unit) capsule valacyclovir 1 gram tablet See Rx Instructions PO .COMPLEX 07/30/24 08/13/24 History Patient hx anesthesia problems: none Family hx anesthesia problems: none Results Review: All pre-operative results and documents have been reviewed as part of the pre- operative evaluation. [facility] Past Medical History Medical History Pulmonary hypertension Mitral valve regurgitation Difficulty swallowing Abdominal pain Left scapula fracture Surgical History Surgical History H/O discectomy H/O lumbar discectomy (~1996) History of bilateral tubal ligation (~1997) Family History Family History Other Cerebrovascular accident Family history of cardiovascular disease Family history of heart disease in male family member before age 55 Family history of lung disease Family history of malignant neoplasm Hypertension Social History Social History Social History: Drinks 2-3 caffeinated beverages/day Smoking status: Never smoker Alcohol intake: current Drinks per week: 2 Alcohol use details: wine Substance use: never Substance use type: does not use Do You Feel Safe in your Home?: Yes Lack of Transportation: No Lack of Food: Never True Current Housing: I Have Housing Concerned About Future Housing: No Difficulty Paying Gas/Electric Bills: No Difficulty Paying for Meds: No Currently Unemployed: No Education: Master's Degree or Higher Difficulty w/ Childcare or Family Care: No Exam Day of Procedure 08/13/24 12:14 Patient weight: overweight Heart: regular rate and rhythm (NSR VR 77 Echo 60-65%) Lungs: clear to auscultation Airway: Mallampati scale class II Neurological: alert and oriented Risks: ASA 3 GEN TIVA with standard monitoring
--- NOTE | 2024-08-13 12:17 | PM.HPGS ---
History of Present Illness History of Present Illness Consent: Risks, benefits, and alternatives have been discussed and questions answered. Patient agrees to proceed with procedure. Chief complaint: Dysphagia,abd pain,Screening Narrative: Misti Gordillo is a 63 year old female with pain in luq few months ago but has improved now, also due to have colonoscopy (last one 2011) Review of Systems Review of Systems: All systems reviewed & are unremarkable except as noted in HPI and below PMFSH Past Medical History Medical History Pulmonary hypertension Mitral valve regurgitation Difficulty swallowing Abdominal pain Left scapula fracture Surgical History Surgical History H/O discectomy H/O lumbar discectomy (~1996) History of bilateral tubal ligation (~1997) Family History Family History Other Cerebrovascular accident Family history of cardiovascular disease Family history of heart disease in male family member before age 55 Family history of lung disease Family history of malignant neoplasm Hypertension Social History Social History Social History: Drinks 2-3 caffeinated beverages/day Smoking status: Never smoker Alcohol intake: current Drinks per week: 2 Alcohol use details: wine Substance use: never Substance use type: does not use Do You Feel Safe in your Home?: Yes Lack of Transportation: No Lack of Food: Never True Current Housing: I Have Housing Concerned About Future Housing: No Difficulty Paying Gas/Electric Bills: No Difficulty Paying for Meds: No Currently Unemployed: No Education: Master's Degree or Higher Difficulty w/ Childcare or Family Care: No Meds Home Medications and Allergies Home Medications ?Medication ?Instructions ?Recorded ?Confirmed ?Type cholecalciferol (vitamin D3) 125 125 mcg PO DAILY 07/30/24 08/13/24 History mcg (5,000 unit) capsule valacyclovir 1 gram tablet See Rx Instructions PO .COMPLEX 07/30/24 08/13/24 History Allergies Allergy/AdvReac Type Severity Reaction Status Date / Time crab Allergy Mild Flushing Verified 08/13/24 11:13 azithromycin Allergy Unknown Asthma Verified 08/13/24 11:13 erythromycin base Allergy Unknown Nausea Verified 08/13/24 11:13 Penicillins Allergy Unknown Skin Verified 08/13/24 11:13 Reaction Sulfa (Sulfonamide Allergy Unknown Skin Verified 08/13/24 11:13 Antibiotics) Reaction naproxen AdvReac GI bleed Verified 08/13/24 11:13 Vital Signs Vital Signs - 24 hr 08/13/24 11:15 Temperature 96.9 F L Pulse Rate 78 Respiratory Rate 18 Blood Pressure 104/76 Pulse Oximetry 100 Oxygen Delivery Room Air Exam Const: General: comfortable and no acute distress HENMT: Face/Nose/Sinus: Normal nares present Eyes: General: appearance normal, both eyes and all related structures Neck: Neck: no JVD Resp: Auscultation: clear to auscultation bilaterally Cardio: Rate: regular rate Rhythm: regular rhythm GI: Inspection: non-distended GI Palp: Yes Soft to palpation Skin: General skin exam: normal color Neuro: Speech: normal speech Extrem: General: normal to inspection Psych: Mental Status: mental status grossly normal Assessment and Plan Assessment and plan (1) Screening for colon cancer: Code(s): Z12.11 - Encounter for screening for malignant neoplasm of colon Status: Acute Assessment and Plan: colonoscopy (2) Abdominal pain: Qualifiers: Abdominal location: left upper quadrant Qualified Code(s): R10.12 - Left upper quadrant pain Code(s): R10.9 - Unspecified abdominal pain Status: Acute Assessment and Plan: egd with bx
[2024-08-13 12:50] VITALS: BP 107/64; PULSE 73; RESP 24; O2SAT 98
[2024-08-13 13:00] VITALS: BP 116/71; PULSE 53; RESP 15; O2SAT 98
--- NOTE | 2024-08-13 13:01 | SUR.OPER ---
EGD ended at 1234, colon began at 1238.
[2024-08-13 13:10] VITALS: BP 123/73; PULSE 52; RESP 20; O2SAT 100
== END 2024-08-13 13:11 | disposition home or self-care (01) ==
PROVIDERS: PCP Family Medicine; Referring Provider Nurse Practitioner; Visit Provider Internal Medicine Gastroenterology
PROC: 0DJ08ZZ Inspection of Upper Intestinal Tract, Via Natural or Artificial Opening Endoscopic (ICD-10-PCS; CPT 45378; principal; 2024-08-13 12:00)
DX: Z12.11 Encounter for screening for malignant neoplasm of colon (principal); K64.8 Other hemorrhoids; K22.2 Esophageal obstruction; K44.9 Diaphragmatic hernia without obstruction or gangrene
CPT/HCPCS: 45378; 43239; 43249; 88305; C1726; J7120

== ENCOUNTER 2024-09-02 14:20 | Outpatient (CLI) | payer OTHER, SELFPAY ==
--- NOTE | ~2024-09-02 | DEXA_ITS ---
Bone Density Report Name: BRAYDON LEONARD Age: 63 Sex: Female Ethnicity: White Date of : 1960 Indication: postmenopausal; screening for osteoporosis; height loss; Referring Provider: Alma Rosa Patel Study: Bone densitometry was performed. Exam Date: September 02, 2024 Accession number: [id number] Bone Density: Region BMD T-score Z-score Classification AP Spine(L1-L4) 0.984 -0.6 1.0 Normal Femoral Neck (Left) 0.619 -2.1 -0.7 Osteopenia Total Hip (Left) 0.820 -1.0 0.1 Normal Femoral Neck (Right) 0.595 -2.3 -0.9 Osteopenia Total Hip (Right) 0.779 -1.3 -0.3 Osteopenia Femoral Neck Mean 0.607 -2.2 -0.8 Osteopenia Total Hip Mean 0.800 -1.2 -0.1 Osteopenia World Health Organization criteria for BMD impression classify patients as: Normal (T-score at or above -1.0), Osteopenia (T-score between -1.0 and -2.5), or Osteoporosis (T-score at or below -2.5). 10-year Fracture Risk(1): Major Osteoporotic Fracture 11% Hip Fracture 1.7% Reported Risk Factors: [place] (), Neck BMD=0.595, BMI=26.8 (1) FRAX(R) Version 3.08. Fracture probability calculated for an untreated patient. Fracture probability may be lower if the patient has received treatment. Clinical Information Provided by Patient: Has used the following medications: Vitamin D, Calcium, multi Patient maximum height was 67 Menopause Age: 51 No regular weight bearing exercise Drinks caffeinated beverages Onset of menses at age 15 Number of children 1 Impression: The patient has low bone mass, based on the Right Femoral Neck T-score. Discussion: BONE DENSITY IS LOW AT ONE OR MORE SKELETAL SITES. This patient's lowest T-score is low at one or more skeletal sites. It meets the World Health Organization's (WHO) criteria for ?low bone mass? (T-score between -1.0 and -2.5). The patient's 10-year risk of fracture as calculated by FRAX is less than the threshold where pharmacological therapy is recommended by the National Osteoporosis Foundation (NOF). However, all treatment decisions require clinical judgment and consideration of individual patient factors, including patient preferences, comorbidities, previous drug use, risk factors not captured in the FRAX model (e.g., frailty, falls, vitamin D deficiency, increased bone turnover, interval significant decline in bone density) and possible under or overestimation of fracture risk by FRAX. The patient should follow a healthful lifestyle (good nutrition with adequate calcium and vitamin D, and appropriate weight-bearing exercise). Follow-Up: Consider repeating this study in 2 to 3 years to reassess this patient's status, or sooner if there is some new clinical indication. Reported by: EM on 09/02/2024 2:39:00 PM. Reviewed, dictated and finalized at location A.
--- OUTSIDE RECORDS SUMMARY | 2024-09-02 14:26 | XMS_ITS | Clinical Summary ---
Author Organization [facility] Address [address] [place] [id number] Care Team Providers Care Process Assistant Name Role Phone Dedra Martin DO Primary Care Provider [phone] Encounters Date Type Department Care Team Description 08/11/2024 9:43 AM CDT - 08/11/2024 11:59 PM CDT Hospital Encounter [facility] [address] [place] [address] Alma Rosa Patel, FRANCISCA Discharge Disposition: Home or Self Care (Routine Discharge) 08/11/2024 Travel from Last 3 Months Social [...] Vaccines (1 of 2) 2012 COVID-19 Vaccine (2023-2 5 season) 2023 07/22/2020, 07/01/2020 DTaP, Tdap [...] 10:14 AM Narrative 08/11/2024 10:14 AM CDT [address] [address] EXAMINATION: Multislice Helical CT Coronary Calcium Scoring [...] Calcium score guidelines: Total Score* Calcium Plaque [place] *Risk *Probability of significant CAD 0 No [...] Procedure Note Holland Quintanilla MD - 08/11/2024 [place] [address] EXAMINATION: Multislice Helical CT Coronary Calcium Scoring [...] Calcium score guidelines: Total Score* Calcium Plaque [place] *Risk *Probability ofsignificant CAD 0 No Plaque [...] 08/11/2024 10:14 AM us Alma Rosa Patel [employer] CT Final Result from Last 3 Months Insurance [employer] Care Teams Process Assistant Relationship Specialty Start Date End Date Dedra Martin DO [address] [place] [address] PCP - General 08/08/24
--- OUTSIDE RECORDS SUMMARY | 2024-09-02 14:26 | XMS_ITS | Clinical Summary ---
Author Organization [facility] Address [address] [place] [id number] Phone Care Team Providers Care Dance Critic Name Role Phone Norris Stacy MD Primary Care Provider [phone] Allergies Active Allergy Reactions Criticality Noted Date [...] Insurance [employer] CHOICE POS II Care Teams Dance Critic Relationship Specialty Start Date End Date Norris Stacy MD [address] [place] [address] PCP - General Family Practice 08/10/20
--- OUTSIDE RECORDS SUMMARY | 2024-09-02 14:26 | XMS_ITS | Referral Summary ---
Author Organization [facility] Address [address] [place] [address] Care Team Providers Care Bounty Trapper Name Role Phone Scarlett Stacy MD Primary Care Provider [phone] Allergies Active Allergy Reactions Criticality Noted Date Comments Azithromycin Shortness of breath,Rash High Penicillins Rash Medium 09/02/2020 Sulfa (Sulfonamide Antibiotics) Rash Medium 09/02/2020 Social History Tobacco Use Types Packs/Day Years Used Date Smoking Tobacco: Never Assessed Comments Unknown Sex and Gender Information Value Date Recorded Sex Assigned at Not on file Legal 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
--- OUTSIDE RECORDS SUMMARY | 2024-09-02 14:26 | XMS_ITS | Clinical Summary ---
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
--- OUTSIDE RECORDS SUMMARY | 2024-09-02 14:27 | XMS_ITS | Data Portability ---
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 Discussed hx of SUSIE pap ; work up with D&C and ECC was (-) discussed LGSIL and ascus with HPV as well otherwise good spirits Not available 03/18/2018 11:36:02 04/08/2019 04/08/2019 clinical haematologist exam normal, no new issues. recent past hx of abnormals reviewed ; normal SUSIE workup in 2017. last pap normal... menopausal, doing well with black cohash and evening primrose [employer] son just got in [place]. a big damn deal... Not available 04/08/2019 17:18:06 04/17/2024 04/17/2024 clinical haematologist exam normal not seen in a few years, no new issues Not available 04/17/2024 15:53:04 Plan of Treatment Reminders Order Date Submit Date Provider Last Modified By Organization Details Last Modified Time Details Appointments None recorded. Lab cytology report, thin prep, smear or scraping, cervical or vaginal 2023 024 [facility], [address] [facility] [address], [place], [address], 12/27/202 4 16:19:32 pap, LB + reflex HPV mRNA E6/E7 - Broom only 2018 019 LOCK8 - [facility], [address], [place], [address], 9 15:35:11 fecal occult blood, stool 2018 019 In-Office Order, Internal Use Only DO Not Attach Compendium DO Not Attach Compendium, Do Not Delete/merge, [id number] 9 17:11:54 pap, LB + reflex HPV mRNA E6/E7 - Broom only 2017 018 LOCK8 - [place] [facility], [address], [place], [address], 8 07:09:35 pap, IG + reflex HR HPV - Reflex if ASCUS 2016 017 LOCK8 - [facility], [address], [place], [address], 7 16:26:16 Referral None recorded. Procedures None recorded. Surgeries None recorded. Imaging MAMMO, screening, digital, bilateral 2023 024 nelly [facility], [address] [place], [address], 5 14:26:13 MAMMO, screening, digital, bilateral 2018 019 Not available 9 17:11:55 MAMMO, screening, digital, bilateral 2017 018 [email or web address] Not available 8 11:25:03 Medication Orders None recorded. Patient TargetsNo targets recorded. Patient Instructions Encounter Date Encounter Id Patient Instructions Last Modified By Organization Details Last Modified Time 03/18/2018 [id number] learning about breast cancer screening Not available 03/18/2018 11:17:23 04/08/2019 [id number] learning about breast cancer screening Not available 04/08/2019 17:11:55 04/17/2024 [id number] A healthy lifestyle: care instructions Not available 04/17/2024 15:36:43 learning about breast cancer screening Not available 04/17/2024 15:36:43 Reason for Referral None Reported. Results Created Date Observation Date Name Description Value Unit Range Abnormal Flag Note LastModifiedBy Organization Detail LastModifiedTime 12/26/19 17 12/28/2016 pap, LB + refle x HPV mRNA E6/E7 clinical information: normal Routi ne exam Not Available [address], [address], 12/28/2016 16:26:16 12/26/19 17 12/28/2016 pap, LB + refle x HPV mRNA E6/E7 LMP: 7 normal Not Available [address], [address], 12/28/2016 16:26:16 12/26/19 17 12/28/2016 pap, LB + refle x HPV mRNA E6/E7 prev. Pap: normal INFOR MATIO N NOT PROVI DED Not Available [address], [address], 12/28/2016 16:26:16 12/26/19 17 12/28/2016 pap, LB + refle x HPV mRNA E6/E7 prev. BX: normal INFOR MATIO N NOT PROVI DED Not Available [address], [address], 12/28/2016 16:26:16 12/26/19 17 12/28/2016 pap, LB + refle x HPV mRNA E6/E7 source: normal Cervi x, Endoc ervix Not Available [address], [address], 12/28/2016 16:26:16 12/26/19 17 12/28/2016 pap, LB + refle x HPV mRNA E6/E7 statement of adequacy: normal Satis facto ry for evalu ation . Endoc ervic al/tr ansfo rmati on zone compo nent prese nt. Not Available [address] [address] [place], [address], 12/28/2016 16:26:16 12/26/19 17 12/28/2016 pap, LB + refle x HPV mRNA E6/E7 interpretati on/result: normal Negat florence for intra epith elial lesio n or malig santos . Not Available [address] [address] [place], [address], 12/28/2016 16:26:16 12/26/19 17 12/28/2016 pap, LB + refle x HPV mRNA E6/E7 comment: normal This Pap test has been evalu ated with compu ter morgan evan techn ology . Not Available [address] [address] [place], [address], 12/28/2016 16:26:16 12/26/19 17 12/28/2016 pap, LB + refle x HPV mRNA E6/E7 cytotechnolo gist: normal PCM, CT( CP) CT scree chery locat ion: [address] [address] [place] [address] Not Available [address] [address] [place], [address], 12/28/2016 16:26:16 03/18/20 18 03/25/2018 pap, LB + refle x HPV mRNA E6/E7 clinical information: normal Routi ne exam Hx of abnor mal Pap/B x withi n 3 years Not Available [address] [address] [place], [address], 03/25/2018 07:09:34 03/18/20 18 03/25/2018 pap, LB + refle x HPV mRNA E6/E7 LMP: [id number] 18 normal Not Available [address] [address] [place], [address], 03/25/2018 07:09:34 03/18/20 18 03/25/2018 pap, LB + refle x HPV mRNA E6/E7 prev. Pap: normal INFOR MATIO N NOT PROVI DED Not Available [address] [address] [place], [address], 03/25/2018 07:09:34 03/18/20 18 03/25/2018 pap, LB + refle x HPV mRNA E6/E7 prev. BX: normal INFOR MATIO N NOT PROVI DED Not Available [address] [address] [place], [address], 03/25/2018 07:09:34 03/18/20 18 03/25/2018 pap, LB + refle x HPV mRNA E6/E7 source: normal Cervi x, Endoc ervix Not Available [address] [address] [place], [address], 03/25/2018 07:09:34 03/18/20 18 03/25/2018 pap, LB + refle x HPV mRNA E6/E7 statement of adequacy: normal Satis facto ry for evalu ation . Endoc ervic al/tr ansfo rmati on zone compo nent absen t. Not Available [address] [address] [place], [address], 03/25/2018 07:09:34 03/18/20 18 03/25/2018 pap, LB + refle x HPV mRNA E6/E7 interpretati on/result: normal Negat florence for intra epith elial lesio n or al graham . Not Available [address] [address] [place], [address], 03/25/2018 07:09:34 03/18/20 18 03/25/2018 pap, LB + refle x HPV mRNA E6/E7 comment: normal This Pap test has been evalu ated with compu ter morgan evan techn ology . Not Available [address] [address] [place], [address], 03/25/2018 07:09:34 03/18/20 18 03/25/2018 pap, LB + refle x HPV mRNA E6/E7 cytotechnolo gist: normal TMK, CT( CP) CT scree chery locat ion: [address] [address] [place] [address] Not Available [facility] [address] [address] [place], [address], 03/25/2018 07:09:34 03/18/20 18 03/25/2018 pap, LB + refle x HPV mRNA E6/E7 review cytotechnolo gist: normal LMT, CT( CP) CT scree chery locat ion: [address] [address] [place] [address] Not Available [facility] [address] [address] [place], [address], 03/25/2018 07:09:34 03/18/20 18 03/25/2018 pap, LB [...] clini niru infor matio n. Not Available [address] [address] [place], [address], 03/25/2018 07:09:34 04/08/20 19 04/10/2019 pap, LB + refle x HPV mRNA E6/E7 clinical information: normal Routi ne exam Not Available [facility] [address] [address] [place], [address], 04/10/2019 15:35:10 04/08/20 19 04/10/2019 pap, LB + refle x HPV mRNA E6/E7 LMP: 8 normal Not Available [address] [place], [address], 04/10/2019 15:35:10 04/08/20 19 04/10/2019 pap, LB + refle x HPV mRNA E6/E7 prev. Pap: normal INFOR MATIO N NOT PROVI DED Not Available [address] [address] [place], [address], 04/10/2019 15:35:10 04/08/20 19 04/10/2019 pap, LB + refle x HPV mRNA E6/E7 prev. BX: normal INFOR MATIO N NOT PROVI DED Not Available [address] [place], [address], 04/10/2019 15:35:10 04/08/20 19 04/10/2019 pap, LB + refle x HPV mRNA E6/E7 source: normal Cervi x, Endoc ervix Not Available [address] [place], [address], 04/10/2019 15:35:10 04/08/20 19 04/10/2019 pap, LB + refle x HPV mRNA E6/E7 statement of adequacy: normal Satis facto ry for evalu ation . Endoc ervic al/tr ansfo rmati on zone compo nent absen t. Not Available [address] [place], [address], 04/10/2019 15:35:10 04/08/20 19 04/10/2019 pap, LB + refle x HPV mRNA E6/E7 interpretati on/result: normal Negat florence for intra epith elial lesio n or malig santos . Not Available [address] [address] [place], [address], 04/10/2019 15:35:10 04/08/20 19 04/10/2019 pap, LB + refle x HPV mRNA E6/E7 cytotechnolo gist: normal AMW, CT( CP) CT scree chery locat ion: [address] [address] [place] [address] Not Available [facility] [address] [address] [place], [address], 04/10/2019 15:35:10 04/08/20 19 04/10/2019 pap, LB + refle x HPV mRNA E6/E7 review cytotechnolo gist: normal MLO, CT( CP) CT scree chery locat ion: [facility] [address] [address] [place] [address] Not Available [facility] [address] [address] [place], [address], 04/10/2019 15:35:10 04/08/20 19 04/10/2019 pap, LB [...] clini niru infor matio n. Not Available [facility] [address] [address] [address], [place], [address], 04/10/2019 15:35:10 04/08/20 19 04/08/2019 fecal occul t blood , stool Occult Blood negati ve Not Available In-Office Order Internal Use Only DO Not Attach Compendium DO Not Attach Compendium, Do Not Delete/merge, [id number] 04/08/2019 16:41:49 04/17/20 24 04/25/2024 IGP, RFX APTIM A HPV ASCU diagnosis: COMMEN T NEGAT [place] FOR INTRA EPITH ELIAL STEPHANIE Hackett OR AL GRAHAM . Not Available [facility] ([facility]) [address] [facility] [address], [place], [address], 04/25/2024 16:19:32 04/17/20 24 04/25/2024 IGP, RFX APTIM A HPV ASCU specimen adequacy: OMEGA Lopez Satis facto ry for evalu ation . Not Available [facility] ([facility]) [address] [facility] [address], [place], [address], 04/25/2024 16:19:32 04/17/20 24 04/25/2024 IGP, RFX APTIM A HPV ASCU clinician provided ICD10: OMEGA Lopez Z01.4 19 Not Available [facility] ([facility]) [address] [facility], [place], [address], 04/25/2024 16:19:32 04/17/20 24 04/25/2024 IGP, RFX APTIM A HPV ASCU performed by: Raymond Wang (ASCP ) Not Available [facility] ([facility]) [address], [place], [address], 04/25/2024 16:19:32 04/17/20 24 04/25/2024 IGP, RFX APTIM A HPV ASCU . . Not Available [facility] ([facility]) [address] [place], [address], 04/25/2024 16:19:32 04/17/20 24 04/25/2024 IGP, RFX [...] ts do occur . Not Available [facility] ([facility]) [address], [place], [address], 04/25/2024 16:19:32 04/17/20 24 04/25/2024 IGP, RFX APTIM A HPV ASCU test methodology: COMMEN T This liqui d based ThinP rep(R ) pap test was scree basim with the use of an image guide conner olivarez. Not Available [facility] ([facility]) [address], [place], [address], 04/25/2024 16:19:32 04/17/20 24 04/25/2024 IGP, RFX APTIM A HPV ASCU . COMMEN T The HPV DNA refle x crite giovana were not met with this speci men resul t there fore, no HPV testi ng was perfo rmed. Not Available [facility] ([facility]) [address], [place], [address], 04/25/2024 16:19:32 Result Notes None recorded. Problems No Known Problems Procedures Surgical History Date Name Laterality Status Provider Name and Address Organization Details Recorded Time 4 Date of Last Pap Smear completed MARIA EUGENIA Greene [facility] 04/25/2024 16:28:53 7 Dilation and Curettage completed Chayo Cheek MA [facility] 08/07/2016 16:51:26 7 Colposcopy completed Enrique Price MD Attn: Accounting[address] [place], [address], [facility] 06/21/2016 12:37:39 Back Surgery completed Mary Cancino RN [facility] 06/12/2016 17:39:41 Tubal Ligation completed Mary Cancino RN [facility] 06/12/2016 17:40:00 Imaging Results None recorded. Procedure Notes None recorded. Medical Equipment None Reported. Allergies Allergen ID Allergen Name Allergen Category Reaction Reaction Severity Criticality Documentation Date Start Date Code Code System Note Provider Name and Address Organization Details Recorded Time 40159 azithromy malini medicatio n Not available Not available Not available 06/12/2016 92281 RxNorm Mary Cancino RN null, [facility] 7 17:30:37 04859 Product containin g penicilli n (product) medicatio n Not available Not available Not available 06/12/2016 41650 8001 TIARRA Cancino RN null, [facility] 7 17:30:51 02393 Substance with sulfonami de structure and antibacte rial mechanism of action (substanc e) medicatio n Not available Not available Not available 06/12/2016 19070 8003 TIARRA Cancino RN null, [facility] 7 17:38:07 Medications Name Sig Start Date Stop Date [...] Updated DateTime 03/18/2018 166.37 cm 29.8 kg/m2 89386.81 g 106 mm[Hg] 72 mm[Hg] Chayo hackett MA [facility] 8 11:14:14 Date Recorded Body height Body mass index (BMI) Body weight Systolic blood pressure Diastolic blood pressure Provider Name and Address Organization Details Last Updated DateTime 04/08/2019 166.37 cm 29.2 kg/m2 40351.87 g 136 mm[Hg] 84 mm[Hg] Chayo hackett MA [facility] 9 16:46:19 Date Recorded Body weight Systolic blood pressure Diastolic blood pressure Provider Name and Address Organization Details Last Updated DateTime 12/08/2021 36026.84 g 126 mm[Hg] 80 mm[Hg] Candace Arianna [facility] 12/08/2021 16:14:28 Date Recorded Body height Body mass index (BMI) Body weight Systolic blood pressure Diastolic blood pressure Provider Name and Address Organization Details Last Updated DateTime 04/17/2024 166.37 cm 28.2 kg/m2 80146.89 g 125 mm[Hg] 80 mm[Hg] Candace Keller [facility] 4 15:32:47 Date Recorded Body height Body mass index (BMI) Body weight Systolic blood pressure Diastolic blood pressure Provider Name and Address Organization Details Last Updated DateTime 12/25/2016 166.37 cm 29.5 kg/m2 26983.7 g 118 mm[Hg] 78 mm[Hg] Chayo hackett MA [facility] 7 16:37:06 Social History Question Answer Notes LastModified by Organizat ion Details LastModified Time Tobacco Smoking Status Never Smoker Mary Cancino RN [facility], [facility] 06/12/2016 17:39:03 What Was The Date [...] SNOMED-CT Code Diagnosis ICD10 Code Diagnosis Note [id number] MD Esdras Wright ([facility] [address]) [address] [facility] [place] [address] 06/21/2016 11:37:12 06/22/2016 11:52:48 Atypical glandular cells on cervical Papanicolaou smear 482003618 R87.510 [id number] MD Esdras Wright ([facility] [address]) [address] [facility] [place] [address] 08/07/2016 16:39:46 08/08/2016 09:33:10 Atypical glandular cells on cervical Papanicolaou smear 873990552 R87.573 [id number] MD Esdras Wright ([facility] [address]) [address] [facility] [place] [address] 12/25/2016 16:15:37 12/26/2016 12:53:29 Atypical glandular cells on cervical Papanicolaou smear 340573639 R87.233 [id number] MD Esdras Wright 14 OB [address] [facility] [place] [address] 03/18/2018 10:20:33 03/20/2018 13:00:07 Gynecologic examination 44560109 Z01.419 Screening for malignant neoplasm of breast 222602737 Z12.31 Screening for malignant neoplasm of colon 362341342 Z12.11 [id number] MD Esdras Wright 14 OB [address] [facility] [place] [address] 04/08/2019 16:35:30 04/11/2019 13:57:40 Gynecologic examination 15330790 Z01.419 Screening for malignant neoplasm of colon 282234328 Z12.11 Screening for malignant neoplasm of breast 138586758 Z12.31 Menopause present 276525 006 N95.1 [id number] MD Esdras Wright 14 OB [address] [facility] [place] [address] 12/08/2021 15:57:54 12/10/2021 03:47:05 [id number] MD Esdras Wright 14 OB [address] [facility] [place] [address] 04/17/2024 15:03:46 04/18/2024 08:24:46 Depression screening 366852950 Z13.31 Overweight 654045873 E66 .3 Gynecologi c examination 41649057 Z01.419 Screening for malignant neoplasm of breast 878318872 Z12.31 Health Concerns Section Related Observation LastModified by Organization Detai ls LastModified Time None Recorded Concern Status LastModified by Organization Details LastModified Time None Recorded Advance Directives Directive None Recorded Payers Encounter Date Sequence Insurance Name Policy Number Policy Ely Covered Member ID Ely Member ID Guarantor Name 12/25/2016 1 [employer] (POS) [id number] Msiti L Latempt [id number] Misti L Latempt 03/18/2018 1 [employer] (POS) [id number] Misti L Latempt [id number] Misti L Latempt 04/08/2019 1 [employer] (POS) [id number] Misti L Latempt [id number] Misti L Latempt 12/08/2021 1 [employer] (POS) [id number] Misti L Latempt [id number] Misti L Latempt 04/17/2024 1 [employer] (POS) [id number] Misti L Latempt [id number] Misti L Latempt Notes Date Note Type Note Provider Name and Address Organization Details Recorded Time 03/18/2018 text/html Annual Financing Analyst Post-MenopausalRep orted bypatient.Menopaus al Symptoms:no menopausal symptoms; [...] anxiety Enrique Price MD Attn: Accounting[address] [place], [address], [facility] 03/18/2018 11:36:29 04/08/2019 text/html Annual Financing Analyst Post-MenopausalRep orted bypatient.Menopaus al Symptoms:no menopausal symptoms; [...] anxiety Enrique Price MD Attn: Accounting[address] [place], [address], [facility] 04/08/2019 17:18:22 04/17/2024 text/html Annual Financing Analyst Post-MenopausalRep orted bypatient.Menopaus al Symptoms:no menopausal symptoms; [...] anxiety Enrique Price MD Attn: Accounting[address] [place], [address], [facility] 04/17/2024 15:53:18 OBGyn Episode Ob Episode Information Episode Created Date Number of Fetuses Patient Bloodtype Patient rh Status Prepregnancy Weight lbs Domestic Partner Domestic Partner Phone Father Name Collet Maker Status 06/12/19 17 1 CLOSED Fetus Data First Name Last Name Admitted to NICU Weight (g) Sex Living Outcome Pediatric Complications Fetus ID Race Codes Race Delivery Type 4082.32 8 M [id number] Vaginal Kings Calculation Initial Kings Date Initial [...]
== END 2024-09-02 14:21 | disposition home or self-care (01) ==
LOC: CHSIMG 14:22
PROVIDERS: PCP Family Medicine; Visit Provider Nurse Practitioner
DX: Z78.0 Asymptomatic menopausal state (principal); M85.89 Other specified disorders of bone density and structure, multiple sites
CPT/HCPCS: 77080

== ENCOUNTER 2024-11-11 14:31 | Emergency (ER) | payer OTHER, SELFPAY ==
[2024-11-11 14:35] VITALS: BP 123/70; PULSE 75; RESP 16; TEMP 36.1; O2SAT 99
--- NOTE | 2024-11-11 14:35 | ED.SKABFB ---
HPI - Skin/Abscess/Foreign Bdy General Chief complaint: Skin/Abscess/Foreign Body Stated complaint: Bug Bite Time Seen by Provider: 11/11/24 14:40 Source: patient and RN notes reviewed Mode of arrival: ambulatory Limitations: dementia History of Present Illness HPI narrative: 64-year-old female presents with concern for a bug bite on her right upper arm. Reports she noticed a bug bite 2 days ago and has since gotten larger and slightly tender. She reports it is also itchy. She has not had any fever, aches, chills, sweats. She denies drainage. MD complaint: insect bite/sting and other (Redness) Related Data Home Medications ?Medication ?Instructions ?Recorded ?Confirmed ?Last Taken ?Type cholecalciferol (vitamin D3) 125 125 mcg PO DAILY 07/30/24 09/04/24 08/12/24 History mcg (5,000 unit) capsule valacyclovir 1 gram tablet See Rx Instructions PO .COMPLEX 07/30/24 09/04/24 Unknown History multivitamin (Super Multivitamin 1 tablet PO DAILY 09/04/24 09/04/24 Unknown History tablet) omega-3 fatty acids 150 mg-fish 1 cap PO DAILY 09/04/24 09/04/24 Unknown History oil 400 mg capsule (Fish Oil Pearls) Allergies Allergy/AdvReac Type Severity Reaction Status Date / Time crab Allergy Mild Flushing Verified 11/11/24 14:40 azithromycin Allergy Unknown Asthma Verified 11/11/24 14:40 erythromycin base Allergy Unknown Nausea Verified 11/11/24 14:40 Penicillins Allergy Unknown Skin Verified 11/11/24 14:40 Reaction Sulfa (Sulfonamide Allergy Unknown Skin Verified 11/11/24 14:40 Antibiotics) Reaction naproxen AdvReac GI bleed Verified 11/11/24 14:40 Review of Systems Review of Systems: CONSTITUTIONAL: Denies malaise, chills, sweats, or fever. EYES: Denies redness, or discharge. ENT: Denies rhinorrhea, congestion, swollen lips, swollen tongue CARDIOVASCULAR: Denies chest pain, palpitations, or edema. RESPIRATORY: Denies cough or dyspnea. GASTROINTESTINAL: Denies abdominal pain, nausea, vomiting SKIN: Reports inflamed bug bite on her right upper arm. Denies purulent drainage, vesicles, bullae, numbness, pain beyond proportion MUSCULOSKELETAL: Denies joint pain or myalgia. NEUROLOGIC: Denies headache. All systems reviewed & are unremarkable except as noted in HPI and below PMFSH Past Medical History Medical History (Updated 11/11/24 @ 14:46 by Gena To NP) Heart valve insufficiency Hiatal hernia RYANN (obstructive sleep apnea) Pulmonary hypertension Mitral valve regurgitation Difficulty swallowing Abdominal pain Left scapula fracture Surgical History Surgical History H/O discectomy H/O lumbar discectomy (~1996) History of bilateral tubal ligation (~1997) Family History Family History Other Cerebrovascular accident Family history of cardiovascular disease Family history of heart disease in male family member before age 55 Family history of lung disease Family history of malignant neoplasm Hypertension Social History Social History Social History: Drinks 2-3 caffeinated beverages/day Smoking status: Never smoker Alcohol intake: current Drinks per week: 2 Alcohol use details: wine Substance use: never Substance use type: does not use Do You Feel Safe in your Home?: Yes Lack of Transportation: No Lack of Food: Never True Current Housing: I Have Housing Concerned About Future Housing: No Difficulty Paying Gas/Electric Bills: No Difficulty Paying for Meds: No Currently Unemployed: No Education: Master's Degree or Higher Difficulty w/ Childcare or Family Care: No Living arrangements: with family Spiritual care concerns: No Comments At time of signature, agree with nursing past medical, surgical, social and family history. There is no relevant family history pertinent to the presenting complaint Exam Narrative: GENERAL: Well-appearing, well-nourished, and in no acute distress. HEAD: Normocephalic, atraumatic. EYES: PERRLA, conjunctivae clear ENT: Mucous membranes moist. NECK: Supple. No lymphadenopathy CHEST: Clear to auscultation. No respiratory distress. HEART: Regular rate and rhythm. SKIN: Warm, dry. 3 cm area of Erythema, induration, tenderness, warmth with a central papule with sharp margins noted right upper arm. No vesicles, bullae, necrosis, ecchymosis, crepitus noted. NEURO: Alert and oriented x3. PSYCH: Normal mood and affect Course Course Emergency Course: Patient is aware of diagnosis, understands and agrees to treatment plan. Anticipatory guidance given. Patient agrees to follow-up as directed and is aware of reasons to seek care at the emergency department. Portions of this record may have been created with voice recognition software Level of Care: Express Care Visit Vital Signs Vital signs: Reviewed. MDM - Skin/Abscess/Foreign Bdy MDM Narrative Medical decision making narrative: I evaluated this in the express care. History is obtained from patient who is an independent historian and physical exam was performed.? Available medical records were reviewed. ? Exam findings and relevant testing show no acute concerns or changes; patient is non-toxic appearing and is in no distress. Does not appear at this time to be erythema multiforme, bullous, SJS, TEN; no evidence at this time to suggest RMSF, NSTI, endocarditis or Lyme disease; patient looks well, nontoxic and is tolerating oral intake; no neurologic signs or symptoms; no headache, photophobia or neck pain; afebrile.? Patient does not have history of of penetrating trauma, laceration, blunt trauma, recent surgery, immunosuppression, malignancy, obesity, alcoholism, corticosteroid use.? Discussed the importance of follow-up, patient agrees; question, cellulitis versus necrotizing soft tissue infection versus abscess.?? Patient is appropriate for outpatient treatment and follow-up. Critical Care Time Critical Care Time Critical Care Time: No Discharge Plan Discharge Clinical Impression: Bug bite with infection Patient Disposition: Home Condition: Stable Instructions: Antibiotic Form, Insect Bite or Sting (ED) Additional Instructions: Rest and elevate affected area; apply moist heat 3-4 times daily for 10-15 minutes. Take Motrin 600mg every 8 hours with food for pain. You can use hydrocortisone cream [id number]. If you are symptoms worsen or do not improve with warm compresses in the next 36-48 hours Please take Antibiotics as prescribed. Please follow up with your Primary Care Doctor as needed If you experience any worsening redness, swelling, streaking (red lines), fever or chills please go to the ER Patient Language: Prydeinig Prescriptions: New cephalexin 500 mg capsule 500 mg PO QID 10 Days Qty: 40 0RF No Action cholecalciferol (vitamin D3) 125 mcg (5,000 unit) capsule 125 mcg PO DAILY valacyclovir 1 gram tablet See Rx Instructions PO .COMPLEX Rx Instructions: orally; multivitamin [Super Multivitamin] Tablet 1 tablet PO DAILY Fish Oil Pearls 150-400 mg capsule 1 cap PO DAILY scopolamine base 1 mg over 3 days patch 3 day 1 patch transdermal Q3D PRN (Reason: nausea and vomiting) Qty: 4 0RF epinephrine [EpiPen] 0.3 mg/0.3 mL auto-injector 0.3 mg IM ONCE Qty: 2 0RF Rx Instructions: as a single dose; may repeat once Follow-up/Referrals: Dedra Martin DO [Primary Care Provider] - Time of Disposition: 14:47
== END 2024-11-11 14:50 | disposition home or self-care (01) ==
PROVIDERS: Emergency Provider Nurse Practitioner; PCP Family Medicine
DX: S40.861A Insect bite (nonvenomous) of right upper arm, initial encounter (principal); L08.9 Local infection of the skin and subcutaneous tissue, unspecified; W57.XXXA Bitten or stung by nonvenomous insect and other nonvenomous arthropods, initial encounter; I27.20 Pulmonary hypertension, unspecified; I34.0 Nonrheumatic mitral (valve) insufficiency
CPT/HCPCS: 99213; G0463